=== PATIENT | female | born 1945 | race Caucasian/White ===

== ENCOUNTER → 2017-07-02 | Day surgery (SDC) | payer MEDICARE, OTHER ==
[~2017-07-02] MED LIST: Lactated Ringers 1,000 ML IV SCH; Propofol 200 MG/20 ML SDV IV ONE
[2017-07-02 11:00] VITALS: BP 179/89
--- NOTE | 2017-07-02 11:27 | OR ---
DATE OF OPERATION: 07/02/2017 PREOPERATIVE DIAGNOSIS: DYSPHAGIA, HISTORY OF JAMA'S. POSTOPERATIVE DIAGNOSIS: DYSPHAGIA, HISTORY OF JAMA'S. SURGEON: Eliot Brower MD PROCEDURE: ESOPHAGOGASTRODUODENOSCOPY WITH BIOPSIES X4, DAYL. 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 COMPLICATIONS: None. SPECIMEN: 1. Antral biopsy x2. 2. DALY. 3. Distal esophageal biopsy x2. FINDINGS: 1. Full-length EGD. 2. Indolent chronic-appearing distal gastritis. 3. Short segment Jama's with focal active reflux esophagitis. RECOMMENDATIONS: Medical followup with Levi Lawrence. INDICATIONS: Ms. Bills has been having some increase in lower chest pain with swallowing at times. She does have a documented history of reflux and Jama's changes. Levi send her for EGD. DESCRIPTION OF PROCEDURE: The patient was prepped and draped, placed in the left lateral decubitus position. A lubricated Olympus gastroscope was inserted and easily intubated in the esophagus. Esophageal lining was benign for most of its course. At its most distal portion, the patient has 1 short segment area of Jama's less than 1 cm in length. There was also a 2nd area that look like more of an active reflux esophagitis. We did biopsies of both areas. There was no active ulceration. No signs of a hiatal hernia. There were no stricturing or Schatzki's rings noted. The scope was intubated into the stomach through the pylorus into the second portion of the duodenum. This in the duodenal bulb were completely benign. The scope was brought back into the stomach and retroflexed. The upper fundus and cardia were unremarkable. Upon straightening and thorough evaluation, the entire gastric lining showed no other polyps, mass, ulceration or bleeding sites. The patient does have some, what appears to be, chronic gastritis without much inflammation of the distal portion of the antrum extending to the pylorus. We did do 2 biopsies of that. CLOtest was obtained as well. Air was then suctioned and the scope was removed without complication. NELSY/COURTNEY /[id number]
== END ==
LOC: CC.SDS 08:37
PROVIDERS: ATTEND Family Medicine
DX: K29.50 Unspecified chronic gastritis without bleeding (principal); K22.70 Barrett's esophagus without dysplasia; K20.9 Esophagitis, unspecified; F32.9 Major depressive disorder, single episode, unspecified; F41.9 Anxiety disorder, unspecified; I10 Essential (primary) hypertension; E78.00 Pure hypercholesterolemia, unspecified; B33.20 Viral carditis, unspecified; Z88.1 Allergy status to other antibiotic agents; Z88.2 Allergy status to sulfonamides; Z88.8 Allergy status to other drugs, medicaments and biological substances; Z79.82 Long term (current) use of aspirin; Z79.899 Other long term (current) drug therapy; Z79.01 Long term (current) use of anticoagulants; Z96.649 Presence of unspecified artificial hip joint; Z96.659 Presence of unspecified artificial knee joint; Z90.710 Acquired absence of both cervix and uterus; Z98.890 Other specified postprocedural states; Z87.891 Personal history of nicotine dependence
CPT/HCPCS: 36415; 43239; 85610; 87081; J2704; J7120; 00740; 88305

== ENCOUNTER 2017-11-10 11:28 | Inpatient (IN) | payer MEDICARE, OTHER ==
[2017-11-10] MEDS ORDERED: Acetaminophen 325 MG Tab PO PRN (11:36)
[2017-11-10] MEDS ORDERED: Sodium Chloride 0.9% 10 ML Syringe FLUSH PRN (11:36)
[2017-11-10] MEDS ORDERED: Ondansetron 4 MG Tab.DIS PO PRN (11:36)
[2017-11-10] MEDS ORDERED: Temazepam 15 MG Cap PO PRN (11:36)
[2017-11-10] MEDS ORDERED: fentaNYL 100 MCG/2 ML SDV IVPUSH PRN (11:36)
[2017-11-10] MEDS ORDERED: Enoxaparin 40 MG/0.4 ML Syringe SUBCUT SCH (11:45)
[2017-11-10 12:31] LABS: CHLORIDE,CL 99 mEq/L (98-106); SODIUM,NA 135 mEq/L (136-145)
[2017-11-10] MEDS ORDERED: Loratadine 10 MG Tab PO PRN (13:18)
[2017-11-10] MEDS ORDERED: ALPRAZolam 0.25 MG Tab PO PRN (13:18)
[2017-11-10] MEDS ORDERED: Phytonadione 1 MG in Sodium Chloride 0.9% 50 ML IV ONE (13:30)
[2017-11-10] MEDS ORDERED: Cyclobenzaprine 10 MG Tab PO PRN (13:30)
[2017-11-10] MEDS: fentaNYL 100 MCG/2 ML SDV IVPUSH SCH ×2 (13:53→19:47)
[2017-11-10] MEDS ORDERED: Calcium Carbonate/Vitamin D3 1250 MG-200 Unit Tab PO SCH (14:00)
[2017-11-10] MEDS: Polyethylene Glycol 3350 Powder 17 GM Packet PO SCH (17:10)
[2017-11-10] MEDS: Acetaminophen/oxyCODONE 325-5 MG Tab PO PRN (17:10)
[2017-11-10] MEDS: Calcium Carbonate/Vitamin D3 1250 MG-200 Unit Tab PO SCH (17:43)
[2017-11-10] MEDS: Cholecalciferol (Vitamin D3) 1,000 Unit Tab PO SCH (19:49)
[2017-11-11] MEDS: Acetaminophen/oxyCODONE 325-5 MG Tab PO PRN ×2 (05:45→15:12)
[2017-11-11] MEDS: Aspirin 81 MG Tab.Chew PO SCH (07:58)
[2017-11-11] MEDS: Calcium Carbonate/Vitamin D3 1250 MG-200 Unit Tab PO SCH ×2 (07:59→17:22)
[2017-11-11] MEDS: buPROPion 150 MG Tab.ER PO SCH (08:00)
[2017-11-11] MEDS: Cholecalciferol (Vitamin D3) 1,000 Unit Tab PO SCH ×2 (08:00→19:40)
[2017-11-11] MEDS: Losartan 100 MG Tab PO SCH (08:01)
[2017-11-11] MEDS: PARoxetine 20 MG Tab PO SCH (08:01)
[2017-11-11] MEDS: amLODIPine 2.5 MG Tab PO SCH (08:01)
[2017-11-11] MEDS: Pantoprazole 40 MG Tab.CR PO SCH (08:01)
[2017-11-11] MEDS: Polyethylene Glycol 3350 Powder 17 GM Packet PO SCH (08:02)
[2017-11-11] MEDS: fentaNYL 100 MCG/2 ML SDV IVPUSH SCH ×2 (08:02→19:37)
[2017-11-11] MEDS ORDERED: Polyethylene Glycol 3350 Powder 17 GM Packet PO PRN (08:54)
[2017-11-11] MEDS ORDERED: Warfarin 5 MG Tab PO ONE (09:00)
--- NOTE | 2017-11-11 11:41 | PCM.PN ---
- General Info Date of Service: 11/11/17 Admission Dx/Problem (Free Text): Sacral Fracture Functional Status: Reports: Pain Controlled (states is pain is better controlled today), Tolerating Diet. Denies: Ambulating - Review of Systems General: Reports: Weakness. Denies: Fever, Fatigue, Malaise HEENT: Reports: No Symptoms Pulmonary: Denies: Shortness of Breath, Cough, Sputum Cardiovascular: Denies: Chest Pain, Edema, Lightheadedness Gastrointestinal: Denies: Abdominal Pain, Nausea, Vomiting Genitourinary: Reports: No Symptoms Musculoskeletal: Reports: Back Pain, Leg Pain Skin: Reports: No Symptoms Neurological: Reports: Difficulty Walking. Denies: Confusion, Dizziness - Patient Data Vitals - Most Recent: Last Vital Signs Temp 96.7 F 11/11/17 08:00 Pulse 79 11/11/17 08:00 Resp 16 11/11/17 08:00 BP 143/60 H 11/11/17 08:01 Pulse Ox 96 11/11/17 08:00 Weight - Most Recent: 178 lb 8 oz Lab Results Last 24 Hours: Laboratory Results - last 24 hr 11/10/17 11/10/17 11/10/17 Range/Units 11:36 12:16 12:25 WBC 6.2 (5.0-10.0) 10^3/uL RBC 4.06 (4.00-5.50) 10^6/uL Hgb 13.2 (12.0-16.0) g/dL Hct 39.7 (37.0-47.0) % MCV 97.8 H (82.0-94.0) fL MCH 32.5 H (27.0-32.0) pg MCHC 33.2 (33.0-38.0) g/dL RDW Coeff of Angie 12.9 (11.0-15.0) % Plt Count 473 H (150-400) 10^3/uL Neut % (Auto) 65.3 (35-85) % Lymph % (Auto) 18.2 (10-55) % [place] % (Auto) 13.6 (0-16) % Eos % (Auto) 2.3 (0-5) % Baso % (Auto) 0.6 (0-3) % Neut # (Auto) 4.03 (1.80-7.00) 10^3/uL Lymph # (Auto) 1.12 (1.00-4.80) 10^3/uL [place] # (Auto) 0.84 H (0.00-0.80) 10^3/uL Eos # (Auto) 0.14 (0.00-0.45) 10^3/uL Baso # (Auto) 0.04 10^3/uL PT 73.2 H (9.7-12.3) SEC INR 6.40 H* (0.92-1.18) Sodium 135 L (136-145) mEq/L Potassium 4.4 (3.5-5.0) mEq/L Chloride 99 (98-106) mEq/L Carbon Dioxide 27 (21-32) mmol/L BUN 17 D (7-18) mg/dL Creatinine 0.9 (0.6-1.0) mg/dL Est Cr Clr Drug Dosing 54.14 mL/min Estimated GFR (MDRD) > 60 (>=60) mL/min Glucose 94 (75-99) mg/dL Calcium 9.1 (8.4-10.1) mg/dL C-Reactive Protein 3.1 H (0.2-0.8) mg/dL 11/11/17 Range/Units 05:11 WBC (5.0-10.0) 10^3/uL RBC (4.00-5.50) 10^6/uL Hgb (12.0-16.0) g/dL Hct (37.0-47.0) % MCV (82.0-94.0) fL MCH (27.0-32.0) pg MCHC (33.0-38.0) g/dL RDW Coeff of Angie (11.0-15.0) % Plt Count (150-400) 10^3/uL Neut % (Auto) (35-85) % Lymph % (Auto) (10-55) % [place] % (Auto) (0-16) % Eos % (Auto) (0-5) % Baso % (Auto) (0-3) % Neut # (Auto) (1.80-7.00) 10^3/uL Lymph # (Auto) (1.00-4.80) 10^3/uL [place] # (Auto) (0.00-0.80) 10^3/uL Eos # (Auto) (0.00-0.45) 10^3/uL Baso # (Auto) 10^3/uL PT 15.7 H (9.7-12.3) SEC INR 1.44 H (0.92-1.18) Sodium (136-145) mEq/L Potassium (3.5-5.0) mEq/L Chloride (98-106) mEq/L Carbon Dioxide (21-32) mmol/L BUN (7-18) mg/dL Creatinine (0.6-1.0) mg/dL Est Cr Clr Drug Dosing mL/min Estimated GFR (MDRD) (>=60) mL/min Glucose (75-99) mg/dL Calcium (8.4-10.1) mg/dL C-Reactive Protein (0.2-0.8) mg/dL Med Orders - Current: Current Medications Acetaminophen (Tylenol) 650 mg PO Q4H PRN PRN Reason: Pain (Mild 1-3)/fever Alprazolam (Xanax) 0.25 mg PO Q6H PRN PRN Reason: Anxiety Amlodipine Besylate (Norvasc) 2.5 mg PO DAILY [facility] Last Admin: 11/11/17 08:01 Dose: 2.5 mg Aspirin (Aspirin) 81 mg PO DAILY [facility] Last Admin: 11/11/17 07:58 Dose: 81 mg Bupropion HCl (Wellbutrin Xl) 150 mg PO DAILY [facility] Last Admin: 11/11/17 08:00 Dose: 150 mg Calcium Carbonate (Calcium Carbonate/Vitamin D 1250 Mg-200 Unit) 2 tab PO 1730 [facility] Last Admin: 11/10/17 17:43 Dose: 2 tab Calcium Carbonate (Calcium Carbonate/Vitamin D 1250 Mg-200 Unit) 1 tab PO DAILY [facility] Last Admin: 11/11/17 07:59 Dose: 1 tab Cholecalciferol (Vitamin D3) 1,000 units PO BID [facility] Last Admin: 11/11/17 08:00 Dose: 1,000 units Cyclobenzaprine HCl (Flexeril) 10 mg PO BID PRN PRN Reason: Other Fentanyl (Sublimaze) 25 mcg IVPUSH BID [facility] Last Admin: 11/11/17 08:02 Dose: 25 mcg Fentanyl (Sublimaze) 25 mcg IVPUSH Q6H PRN PRN Reason: Pain Last Admin: 11/11/17 02:21 Dose: 25 mcg Loratadine (Claritin) 10 mg PO DAILY PRN PRN Reason: Allergies Losartan Potassium (Cozaar) 100 mg PO DAILY [facility] Last Admin: 11/11/17 08:01 Dose: 100 mg Metoprolol Succinate (Toprol Xl) 50 mg PO BEDTIME [facility] Ondansetron HCl (Zofran Odt) 4 mg PO Q4H PRN PRN Reason: nausea, able to take PO Oxycodone/Acetaminophen (Percocet 325-5 Mg) 1 - 2 tab PO Q4H PRN PRN Reason: Pain (moderate 4-6) Last Admin: 11/11/17 05:45 Dose: 2 tab Pantoprazole Sodium (Protonix) 40 mg PO DAILY [facility] Last Admin: 11/11/17 08:01 Dose: 40 mg Paroxetine HCl (Paxil) 20 mg PO DAILY [facility] Last Admin: 11/11/17 08:01 Dose: 20 mg Polyethylene Glycol (Miralax) 17 gm PO DAILY PRN PRN Reason: Constipation Sodium Chloride (Saline Flush) 10 ml FLUSH ASDIRECTED PRN PRN Reason: Keep Vein Open Temazepam (Restoril) 15 mg PO BEDTIME PRN PRN Reason: Sleep Discontinued Medications Calcium Carbonate (Calcium Carbonate/Vitamin D 1250 Mg-200 Unit) 1 tab PO TID [facility] Last Admin: 11/10/17 15:03 Dose: Not Given Enoxaparin Sodium (Lovenox) 40 mg SUBCUT Q24H [facility] Last Admin: 11/10/17 12:29 Dose: Not Given Phytonadione 1 mg/ Sodium (Chloride) 50.1 mls @ 100 mls/hr IV NOW ONE Stop: 11/10/17 14:00 Last Admin: 11/10/17 14:06 Dose: 100 mls/hr Polyethylene Glycol (Miralax) 17 gm PO DAILY [facility] Last Admin: 11/11/17 08:02 Dose: Not Given Warfarin Sodium (Coumadin) 5 mg PO ONETIME ONE Stop: 11/11/17 09:01 Last Admin: 11/11/17 09:10 Dose: 5 mg - Exam General: Alert, Oriented HEENT: Mucous Membr. Moist/[place] Neck: Supple Lungs: Clear to Auscultation, Normal Respiratory Effort Cardiovascular: Regular Rate, Regular Rhythm GI/Abdominal Exam: Normal Bowel Sounds, Soft, Non-Tender Back Exam: Normal Inspection, Vertebral Tenderness (sacral tenderness, SI joint tenderness with palpation.) Extremities: Redness, Other (faint pedal pulse today, still has purpura to right lateral foot, warmer to the touch) Skin: Warm, Dry Neurological: No New Focal Deficit - Problem List & Annotations (1) Sacral fracture, closed SNOMED Code(s): 787104760 Code(s): S32.10XA - UNSP FRACTURE OF SACRUM, INIT ENCNTR FOR CLOSED FRACTURE Status: Acute Priority: High Current Visit: Yes Qualifiers: Encounter type: initial encounter Fracture alignment: nondisplaced - Problem List Review Problem List Initiated/Reviewed/Updated: Yes - My Orders Last 24 Hours: My Active Orders 11/10/17 11:36 Patient Status [ADT] Routine Oxygen Therapy [RC] .PRN Up With Assistance [RC] .PRN Vital Signs [RC] 0800,1200,1600,2000,0000 PT Evaluation and Treatment [CONS] Routine Hip Min 2V or 3V w Pelvis Rt [CR] Routine Lumbar Spine wo Cont [CT] Routine Acetaminophen [Tylenol] 650 mg PO Q4H PRN Acetaminophen/oxyCODONE [Percocet 325-5 MG] 1 - 2 tab PO Q4H PRN Ondansetron [Zofran ODT] 4 mg PO Q4H PRN Sodium Chloride 0.9% [Saline Flush] 10 ml FLUSH ASDIRECTED PRN Temazepam [Restoril] 15 mg PO BEDTIME PRN fentaNYL [Sublimaze] 25 mcg IVPUSH Q6H PRN Saline Lock Insert [OM.PC] Routine 11/10/17 11:39 Antiembolic Hose [OM.PC] Per Unit Routine 11/10/17 11:40 Antiembolic Devices [RC] 1000,2200 11/10/17 12:30 fentaNYL [Sublimaze] 25 mcg IVPUSH BID 11/10/17 13:18 ALPRAZolam [Xanax] 0.25 mg PO Q6H PRN Loratadine [Claritin] 10 mg PO DAILY PRN 11/10/17 13:30 Cyclobenzaprine [Flexeril] 10 mg PO BID PRN 11/10/17 17:01 K Pad [Heat Therapy] [OM.PC] Routine 11/10/17 17:30 Calcium Carbonate/Vitamin D3 [Calcium Carbonate/Vitamin D 1250 MG-200 Unit] 2 tab PO 1730 11/10/17 20:00 Cholecalciferol (Vitamin D3) [Vitamin D3] 1,000 units PO BID 11/10/17 Lunch Regular Diet [DIET] 11/11/17 08:00 Aspirin 81 mg PO DAILY Calcium Carbonate/Vitamin D3 [Calcium Carbonate/Vitamin D 1250 MG-200 Unit] 1 tab PO DAILY Losartan [Cozaar] 100 mg PO DAILY PARoxetine [Paxil] 20 mg PO DAILY Pantoprazole [ProTONIX] 40 mg PO DAILY amLODIPine [Norvasc] 2.5 mg PO DAILY buPROPion [Wellbutrin XL] 150 mg PO DAILY 11/11/17 08:54 Polyethylene Glycol 3350 [MiraLAX] 17 gm PO DAILY PRN 11/11/17 20:00 Metoprolol Succinate [Toprol XL] 50 mg PO BEDTIME 11/12/17 05:11 INR,PT,PROTHROMBIN TIME [COAG] DAILY 11/13/17 05:11 INR,PT,PROTHROMBIN TIME [COAG] DAILY - Assessment Assessment:: Sacral Fracture - Plan Plan:: Patient states is getting better pain control this am, is taking Percocet in addition to her Fentanyl. Ambulating short distances with walker and tolerating fairly well. Has more pain with rising up, ambulating and sitting. Is very tender to the coccyx region and right buttock. Feels the radiation to the mid thigh. Right foot is warmer to the touch today, faint pulse palpable. Does have a purpura/valery appearance to the right lateral foot. Has not had any injuries. Had good bowel movement after dose of Miralax yesterday. Will continue with IV pain management, Physical therapy as directed. Miralax to PRN only. Inappropriate for discharge as is getting pain control with IV meds versus failed oral treatment at home.
[2017-11-11] MEDS: Metoprolol Succinate 25 MG Tab.ER PO SCH (19:39)
[2017-11-12] MEDS: Acetaminophen/oxyCODONE 325-5 MG Tab PO PRN ×2 (04:51→14:42)
[2017-11-12] MEDS: fentaNYL 100 MCG/2 ML SDV IVPUSH SCH ×2 (07:25→19:56)
[2017-11-12] MEDS: Calcium Carbonate/Vitamin D3 1250 MG-200 Unit Tab PO SCH ×2 (07:31→17:15)
[2017-11-12] MEDS: Aspirin 81 MG Tab.Chew PO SCH (07:31)
[2017-11-12] MEDS: Cholecalciferol (Vitamin D3) 1,000 Unit Tab PO SCH ×2 (07:31→19:57)
[2017-11-12] MEDS: PARoxetine 20 MG Tab PO SCH (07:32)
[2017-11-12] MEDS: Losartan 100 MG Tab PO SCH (07:32)
[2017-11-12] MEDS: buPROPion 150 MG Tab.ER PO SCH (07:32)
[2017-11-12] MEDS: Pantoprazole 40 MG Tab.CR PO SCH (07:32)
[2017-11-12] MEDS: amLODIPine 2.5 MG Tab PO SCH (07:33)
[2017-11-12] MEDS: Warfarin 5 MG Tab PO SCH (12:01)
--- NOTE | 2017-11-12 13:04 | PCM.PN ---
- General Info Date of Service: 11/12/17 Admission Dx/Problem (Free Text): Sacral Fracture Functional Status: Reports: Pain Controlled (pain controlled while at rest and is better with pain meds), Tolerating Diet, Ambulating (short distances) - Review of Systems General: Reports: Weakness HEENT: Reports: No Symptoms Pulmonary: Reports: No Symptoms Cardiovascular: Reports: No Symptoms Gastrointestinal: Reports: No Symptoms Genitourinary: Reports: No Symptoms Musculoskeletal: Reports: Back Pain, Leg Pain Skin: Reports: No Symptoms Neurological: Reports: No Symptoms - Patient Data Vitals - Most Recent: Last Vital Signs Temp 97.5 F 11/12/17 11:50 Pulse 72 11/12/17 11:50 Resp 20 11/12/17 11:50 BP 137/61 11/12/17 11:50 Pulse Ox 99 11/12/17 11:50 Weight - Most Recent: 178 lb 8 oz Lab Results Last 24 Hours: Laboratory Results - last 24 hr 11/12/17 Range/Units 05:11 PT 13.9 H (9.7-12.3) SEC INR 1.28 H (0.92-1.18) Med Orders - Current: Current Medications Acetaminophen (Tylenol) 650 mg PO Q4H PRN PRN Reason: Pain (Mild 1-3)/fever Alprazolam (Xanax) 0.25 mg PO Q6H PRN PRN Reason: Anxiety Amlodipine Besylate (Norvasc) 2.5 mg PO DAILY [facility] Last Admin: 11/12/17 07:33 Dose: 2.5 mg Aspirin (Aspirin) 81 mg PO DAILY [facility] Last Admin: 11/12/17 07:31 Dose: 81 mg Bupropion HCl (Wellbutrin Xl) 150 mg PO DAILY [facility] Last Admin: 11/12/17 07:32 Dose: 150 mg Calcium Carbonate (Calcium Carbonate/Vitamin D 1250 Mg-200 Unit) 2 tab PO 1730 [facility] Last Admin: 11/11/17 17:22 Dose: 2 tab Calcium Carbonate (Calcium Carbonate/Vitamin D 1250 Mg-200 Unit) 1 tab PO DAILY [facility] Last Admin: 11/12/17 07:31 Dose: 1 tab Cholecalciferol (Vitamin D3) 1,000 units PO BID [facility] Last Admin: 11/12/17 07:31 Dose: 1,000 units Cyclobenzaprine HCl (Flexeril) 10 mg PO BID PRN PRN Reason: Other Fentanyl (Sublimaze) 25 mcg IVPUSH BID [facility] Last Admin: 11/12/17 07:25 Dose: 25 mcg Fentanyl (Sublimaze) 25 mcg IVPUSH Q6H PRN PRN Reason: Pain Last Admin: 11/11/17 02:21 Dose: 25 mcg Loratadine (Claritin) 10 mg PO DAILY PRN PRN Reason: Allergies Losartan Potassium (Cozaar) 100 mg PO DAILY [facility] Last Admin: 11/12/17 07:32 Dose: 100 mg Metoprolol Succinate (Toprol Xl) 50 mg PO BEDTIME [facility] Last Admin: 11/11/17 19:39 Dose: 50 mg Ondansetron HCl (Zofran Odt) 4 mg PO Q4H PRN PRN Reason: nausea, able to take PO Oxycodone/Acetaminophen (Percocet 325-5 Mg) 1 - 2 tab PO Q4H PRN PRN Reason: Pain (moderate 4-6) Last Admin: 11/12/17 04:51 Dose: 2 tab Pantoprazole Sodium (Protonix) 40 mg PO DAILY [facility] Last Admin: 11/12/17 07:32 Dose: 40 mg Paroxetine HCl (Paxil) 20 mg PO DAILY [facility] Last Admin: 11/12/17 07:32 Dose: 20 mg Polyethylene Glycol (Miralax) 17 gm PO DAILY PRN PRN Reason: Constipation Sodium Chloride (Saline Flush) 10 ml FLUSH ASDIRECTED PRN PRN Reason: Keep Vein Open Temazepam (Restoril) 15 mg PO BEDTIME PRN PRN Reason: Sleep Warfarin Sodium (Coumadin) 5 mg PO DAILY@1200 [facility] Last Admin: 11/12/17 12:01 Dose: 5 mg Discontinued Medications Calcium Carbonate (Calcium Carbonate/Vitamin D 1250 Mg-200 Unit) 1 tab PO TID [facility] Last Admin: 11/10/17 15:03 Dose: Not Given Enoxaparin Sodium (Lovenox) 40 mg SUBCUT Q24H [facility] Last Admin: 11/10/17 12:29 Dose: Not Given Phytonadione 1 mg/ Sodium (Chloride) 50.1 mls @ 100 mls/hr IV NOW ONE Stop: 11/10/17 14:00 Last Admin: 11/10/17 14:06 Dose: 100 mls/hr Polyethylene Glycol (Miralax) 17 gm PO DAILY [facility] Last Admin: 11/11/17 08:02 Dose: Not Given Warfarin Sodium (Coumadin) 5 mg PO ONETIME ONE Stop: 11/11/17 09:01 Last Admin: 11/11/17 09:10 Dose: 5 mg - Exam General: Alert, Oriented HEENT: Mucous Membr. Moist/[place] Neck: Supple Lungs: Clear to Auscultation, Normal Respiratory Effort Cardiovascular: Irregular Rhythm GI/Abdominal Exam: Normal Bowel Sounds, Soft, Non-Tender Back Exam: Decreased Range of Motion, Vertebral Tenderness, Other (pain to the right buttock with palpation). No: Full Range of Motion Skin: Warm, Dry Neurological: No New Focal Deficit - Problem List & Annotations (1) Sacral fracture, closed SNOMED Code(s): 591399719 Code(s): S32.10XA - UNSP FRACTURE OF SACRUM, INIT ENCNTR FOR CLOSED FRACTURE Status: Acute Priority: High Current Visit: Yes Qualifiers: Encounter type: initial encounter Fracture alignment: nondisplaced - Problem List Review Problem List Initiated/Reviewed/Updated: Yes - My Orders Last 24 Hours: My Active Orders 11/11/17 20:00 Metoprolol Succinate [Toprol XL] 50 mg PO BEDTIME 11/12/17 12:00 Warfarin [Coumadin] 5 mg PO DAILY@1200 11/15/17 05:11 INR,PT,PROTHROMBIN TIME [COAG] Routine - Assessment Assessment:: Sacral Fracture - Plan Plan:: Patient states is getting better pain control this am, is taking Percocet in addition to her Fentanyl. Ambulating short distances with walker and tolerating fairly well. Has more pain with rising up, ambulating and sitting. Is very tender to the coccyx region and right buttock. Feels the radiation to the mid thigh. Right foot is warmer to the touch today, faint pulse palpable. Does have a purpura/valery appearance to the right lateral foot. Has not had any injuries. Had good bowel movement after dose of Miralax yesterday. Will continue with IV pain management, Physical therapy as directed. Miralax to PRN only. Inappropriate for discharge as is getting pain control with IV meds versus failed oral treatment at home. 11-12-2017 Patient feels her pain is controlled better with the meds but still has discomfort with movement. Does feel she is ambulating better than had been prior. Continues to have pain in the coccyx region and right buttock that radiates down her thigh. Has a K Pad on her back now and she believes that has also helped a lot. Continue to work with PT. Pain management. Possibly transfer to swing bed tomorrow for ongoing PT and pain management until able to return home as self care.
[2017-11-12] MEDS: Metoprolol Succinate 25 MG Tab.ER PO SCH (19:57)
[2017-11-13] MEDS: Acetaminophen/oxyCODONE 325-5 MG Tab PO PRN (03:56)
[2017-11-13] MEDS: fentaNYL 100 MCG/2 ML SDV IVPUSH SCH (07:28)
[2017-11-13] MEDS: Aspirin 81 MG Tab.Chew PO SCH (07:29)
[2017-11-13] MEDS: amLODIPine 2.5 MG Tab PO SCH (07:30)
[2017-11-13] MEDS: Calcium Carbonate/Vitamin D3 1250 MG-200 Unit Tab PO SCH (07:30)
[2017-11-13] MEDS: PARoxetine 20 MG Tab PO SCH (07:30)
[2017-11-13] MEDS: Pantoprazole 40 MG Tab.CR PO SCH (07:30)
[2017-11-13] MEDS: buPROPion 150 MG Tab.ER PO SCH (07:30)
[2017-11-13] MEDS: Cholecalciferol (Vitamin D3) 1,000 Unit Tab PO SCH (07:30)
[2017-11-13] MEDS: Losartan 100 MG Tab PO SCH (07:32)
[2017-11-13] MEDS: Warfarin 5 MG Tab PO SCH (11:35)
[2017-11-13 12:02] VITALS: BP 151/68
--- NOTE | 2017-11-13 13:35 | PCM.DCSUM1 ---
Discharge Summary - Hospital Course HPI Initial Comments: Romana is a pleasat 72 year old female who was admitted to the hospital on 11/10 for a sacral ulcer. She was unable to adequately control her pain and complete her ADLs at home. She had reportedly been hurting for a while and feels she may have caused worsening of the pain when she was visiting her daughter in [place] and going up and down stairs. She had also rode in a car for an extended amount of time. The few days prior to admission, the pain had become much worse and she was having trouble making it to the bathroom in time. Throughout acute stay, patients pain control was improving. She was requiring IV fentanyl for breakthrough pain, in addition to Percocet. She has been ambulating short distances with nursing staff and physical therapy. She reports the pain worsens with sitting for too long, standing, and ambulating. At rest her pain is well controlled. She remains tender to touch in her coccyx area. She also continues to have pain from the coccyx region and right buttock that radiates down her right leg. She will be discharged to swing bed for continued physical therapy and pain management. She is continuing to require the IV fentanyl for breakthrough pain. I do not feel she is ready to go home at this point, as she lives alone and remains unable to care for herself. - Discharge Data Discharge Date: 11/13/17 Discharge Disposition: Home, Self-Care 01 Condition: Good - Discharge Diagnosis/Problem(s) (1) Sacral fracture, closed SNOMED Code(s): 602185137 ICD Code: S32.10XA - UNSP FRACTURE OF SACRUM, INIT ENCNTR FOR CLOSED FRACTURE Status: Acute Priority: High Qualifiers: Encounter type: initial encounter Fracture alignment: nondisplaced - Patient Summary/Data Consults: Consultations 11/10/17 11:36 PT Evaluation and Treatment [CONS] Routine - Discharge Plan Home Medications: Home Meds Ascorbic Acid [Vitamin C] 1 tab PO DAILY PRN 08/02/15 [History] Aspirin 81 mg PO DAILY 08/02/15 [History] Calcium Citrate/Vitamin D3 [Calcium Citrate + Caplet] 1,000 mg PO QAM 08/02/15 [ History] Cetirizine [ZyrTEC] 10 mg PO DAILY PRN 08/02/15 [History] Lysine 2 tab PO DAILY PRN 08/02/15 [History] Metoprolol Succinate [Toprol XL] 50 mg PO DAILY 08/02/15 [History] PARoxetine [Paxil] 20 mg PO DAILY 08/02/15 [History] Warfarin [Coumadin] 5 mg PO MOTUWETHFRSA 08/02/15 [History] Losartan Potassium 100 mg PO DAILY 03/04/16 [History] Zoledronic Acid in Water [Reclast] 5 mg IV Q365D 03/04/16 [History] amLODIPine Besylate [Norvasc] 2.5 mg PO DAILY 03/04/16 [History] ALPRAZolam [Xanax] 0.25 mg PO Q6H PRN 07/01/17 [History] Cholecalciferol (Vitamin D3) [Vitamin D3] 1,000 units PO BID 07/01/17 [History] Cyclobenzaprine HCl 10 mg PO BID PRN 07/01/17 [History] Pantoprazole Sodium 40 mg PO DAILY 07/01/17 [History] buPROPion HCl [Wellbutrin Xl] 150 mg PO DAILY 07/01/17 [History] Calcium Citrate/Vitamin D3 [Calcium Citrate - Vit D Tablet] 2,000 mg PO 1730 [History] Warfarin [Coumadin] 2.5 mg PO TONY 11/10/17 [History] oxyCODONE HCl/Acetaminophen [oxyCODONE-Acetaminophen 5-325] 1 - 2 tab PO Q4HR PRN 11/10/17 [History] - General Info Functional Status: Reports: Pain Controlled (at rest, worsens with activity), Tolerating Diet, Ambulating (short distances with assistance & FWW), Urinating. Denies: New Symptoms - Review of Systems General: Reports: Weakness Pulmonary: Reports: No Symptoms Cardiovascular: Reports: No Symptoms Gastrointestinal: Reports: No Symptoms Genitourinary: Reports: No Symptoms Musculoskeletal: Reports: Back Pain, Leg Pain Skin: Reports: No Symptoms Neurological: Reports: No Symptoms Psychiatric: Reports: No Symptoms - Patient Data Vitals - Most Recent: Last Vital Signs Temp 97.9 F 11/13/17 12:00 Pulse 68 11/13/17 12:00 Resp 19 11/13/17 12:00 BP 151/68 H 11/13/17 12:00 Pulse Ox 100 11/13/17 12:00 Weight - Most Recent: 178 lb 8 oz Med Orders - Current: Current Medications Acetaminophen (Tylenol) 650 mg PO Q4H PRN PRN Reason: Pain (Mild 1-3)/fever Alprazolam (Xanax) 0.25 mg PO Q6H PRN PRN Reason: Anxiety Amlodipine Besylate (Norvasc) 2.5 mg PO DAILY [facility] Last Admin: 11/13/17 07:30 Dose: 2.5 mg Aspirin (Aspirin) 81 mg PO DAILY [facility] Last Admin: 11/13/17 07:29 Dose: 81 mg Bupropion HCl (Wellbutrin Xl) 150 mg PO DAILY [facility] Last Admin: 11/13/17 07:30 Dose: 150 mg Calcium Carbonate (Calcium Carbonate/Vitamin D 1250 Mg-200 Unit) 2 tab PO 1730 [facility] Last Admin: 11/12/17 17:15 Dose: 2 tab Calcium Carbonate (Calcium Carbonate/Vitamin D 1250 Mg-200 Unit) 1 tab PO DAILY [facility] Last Admin: 11/13/17 07:30 Dose: 1 tab Cholecalciferol (Vitamin D3) 1,000 units PO BID [facility] Last Admin: 11/13/17 07:30 Dose: 1,000 units Cyclobenzaprine HCl (Flexeril) 10 mg PO BID PRN PRN Reason: Other Fentanyl (Sublimaze) 25 mcg IVPUSH BID [facility] Last Admin: 11/13/17 07:28 Dose: 25 mcg Fentanyl (Sublimaze) 25 mcg IVPUSH Q6H PRN PRN Reason: Pain Last Admin: 11/11/17 02:21 Dose: 25 mcg Loratadine (Claritin) 10 mg PO DAILY PRN PRN Reason: Allergies Losartan Potassium (Cozaar) 100 mg PO DAILY [facility] Last Admin: 11/13/17 07:32 Dose: 100 mg Metoprolol Succinate (Toprol Xl) 50 mg PO BEDTIME [facility] Last Admin: 11/12/17 19:57 Dose: 50 mg Ondansetron HCl (Zofran Odt) 4 mg PO Q4H PRN PRN Reason: nausea, able to take PO Oxycodone/Acetaminophen (Percocet 325-5 Mg) 1 - 2 tab PO Q4H PRN PRN Reason: Pain (moderate 4-6) Last Admin: 11/13/17 03:56 Dose: 2 tab Pantoprazole Sodium (Protonix) 40 mg PO DAILY [facility] Last Admin: 11/13/17 07:30 Dose: 40 mg Paroxetine HCl (Paxil) 20 mg PO DAILY [facility] Last Admin: 11/13/17 07:30 Dose: 20 mg Polyethylene Glycol (Miralax) 17 gm PO DAILY PRN PRN Reason: Constipation Sodium Chloride (Saline Flush) 10 ml FLUSH ASDIRECTED PRN PRN Reason: Keep Vein Open Temazepam (Restoril) 15 mg PO BEDTIME PRN PRN Reason: Sleep Warfarin Sodium (Coumadin) 5 mg PO DAILY@1200 [facility] Last Admin: 11/13/17 11:35 Dose: 5 mg Discontinued Medications Calcium Carbonate (Calcium Carbonate/Vitamin D 1250 Mg-200 Unit) 1 tab PO TID [facility] Last Admin: 11/10/17 15:03 Dose: Not Given Enoxaparin Sodium (Lovenox) 40 mg SUBCUT Q24H [facility] Last Admin: 11/10/17 12:29 Dose: Not Given Phytonadione 1 mg/ Sodium (Chloride) 50.1 mls @ 100 mls/hr IV NOW ONE Stop: 11/10/17 14:00 Last Admin: 11/10/17 14:06 Dose: 100 mls/hr Polyethylene Glycol (Miralax) 17 gm PO DAILY [facility] Last Admin: 11/11/17 08:02 Dose: Not Given Warfarin Sodium (Coumadin) 5 mg PO ONETIME ONE Stop: 11/11/17 09:01 Last Admin: 11/11/17 09:10 Dose: 5 mg - Exam General: Reports: Alert, Oriented HEENT: Reports: Mucous Membr. Moist/[place] Neck: Reports: Supple Lungs: Reports: Clear to Auscultation, Normal Respiratory Effort Cardiovascular: Reports: Regular Rate, Irregular Rhythm GI/Abdominal Exam: Normal Bowel Sounds, Soft, Non-Tender, No Organomegaly, No Distention, No Abnormal Bruit, No Mass, Pelvis Stable Back Exam: Reports: Decreased Range of Motion, Vertebral Tenderness, Other ( pain to right buttock with palpation) Skin: Reports: Warm, Dry Neurological: Reports: No New Focal Deficit Psy/Mental Status: Reports: Alert, Normal Affect, Normal Mood *Q Meaningful Use (DIS) - VTE *Q VTE Criteria *Q: - Stroke *Q Stroke Criteria *Q: - AMI *Q AMI Criteria *Q:
== END 2017-11-13 13:36 | disposition home or self-care (01) | DRG 552 ==
LOC: CC.MS 11:28 → UNDOADMIN 11:28 → CC.MS 11:36
PROVIDERS: ADMIT Physician Assistant Medical; ATTEND Family Medicine
DX: S32.10XA Unspecified fracture of sacrum, initial encounter for closed fracture (principal); Z88.8 Allergy status to other drugs, medicaments and biological substances; Z79.01 Long term (current) use of anticoagulants; Z79.82 Long term (current) use of aspirin; Z79.899 Other long term (current) drug therapy; X58.XXXA Exposure to other specified factors, initial encounter
CPT/HCPCS: 36415; 72131; 80048; 85025; 85610; 86140; 97110-GP; 97162-GP; 97530-GP; A9270-GY; J3010; J3430; J7050

== ENCOUNTER 2017-11-13 13:40 | Inpatient (IN) | payer MEDICARE, OTHER ==
[2017-11-13] MEDS ORDERED: Acetaminophen 325 MG Tab PO PRN (13:55)
[2017-11-13] MEDS ORDERED: Sodium Chloride 0.9% 10 ML Syringe FLUSH PRN ×2 (13:55)
[2017-11-13] MEDS ORDERED: Loratadine 10 MG Tab PO PRN (13:55)
[2017-11-13] MEDS ORDERED: fentaNYL 100 MCG/2 ML SDV IVPUSH PRN (13:55)
[2017-11-13] MEDS ORDERED: Temazepam 15 MG Cap PO PRN (13:55)
[2017-11-13] MEDS ORDERED: ALPRAZolam 0.25 MG Tab PO PRN (13:55)
[2017-11-13] MEDS ORDERED: Cyclobenzaprine 10 MG Tab PO PRN (13:55)
[2017-11-13] MEDS ORDERED: Ondansetron 4 MG Tab.DIS PO PRN (13:55)
[2017-11-13] MEDS ORDERED: Polyethylene Glycol 3350 Powder 17 GM Packet PO PRN (13:55)
[2017-11-13] MEDS: Acetaminophen/oxyCODONE 325-5 MG Tab PO PRN (14:38)
[2017-11-13] MEDS: Calcium Carbonate/Vitamin D3 1250 MG-200 Unit Tab PO SCH (17:42)
[2017-11-13] MEDS: fentaNYL 100 MCG/2 ML SDV IVPUSH SCH (20:01)
[2017-11-13] MEDS: Metoprolol Succinate 25 MG Tab.ER PO SCH (20:02)
[2017-11-13] MEDS: Cholecalciferol (Vitamin D3) 1,000 Unit Tab PO SCH (20:03)
[2017-11-14] MEDS: Pantoprazole 40 MG Tab.CR PO SCH (06:46)
[2017-11-14] MEDS: amLODIPine 2.5 MG Tab PO SCH (07:37)
[2017-11-14] MEDS: Calcium Carbonate/Vitamin D3 1250 MG-200 Unit Tab PO SCH ×2 (07:39→17:53)
[2017-11-14] MEDS: PARoxetine 20 MG Tab PO SCH (07:39)
[2017-11-14] MEDS: Cholecalciferol (Vitamin D3) 1,000 Unit Tab PO SCH ×2 (07:39→19:53)
[2017-11-14] MEDS: Aspirin 81 MG Tab.EC PO SCH (07:39)
[2017-11-14] MEDS: Losartan 100 MG Tab PO SCH (07:40)
[2017-11-14] MEDS: fentaNYL 100 MCG/2 ML SDV IVPUSH SCH ×2 (07:40→19:52)
[2017-11-14] MEDS: buPROPion 150 MG Tab.ER PO SCH (07:40)
[2017-11-14] MEDS: Warfarin 5 MG Tab PO SCH (12:02)
[2017-11-14] MEDS: Metoprolol Succinate 25 MG Tab.ER PO SCH (19:53)
[2017-11-14] MEDS: Acetaminophen/oxyCODONE 325-5 MG Tab PO PRN (22:17)
[2017-11-15] MEDS: Pantoprazole 40 MG Tab.CR PO SCH (07:26)
[2017-11-15] MEDS: Losartan 100 MG Tab PO SCH (07:26)
[2017-11-15] MEDS: Calcium Carbonate/Vitamin D3 1250 MG-200 Unit Tab PO SCH ×2 (07:26→17:19)
[2017-11-15] MEDS: PARoxetine 20 MG Tab PO SCH (07:26)
[2017-11-15] MEDS: buPROPion 150 MG Tab.ER PO SCH (07:26)
[2017-11-15] MEDS: Cholecalciferol (Vitamin D3) 1,000 Unit Tab PO SCH ×2 (07:26→19:41)
[2017-11-15] MEDS: Aspirin 81 MG Tab.EC PO SCH (07:27)
[2017-11-15] MEDS: amLODIPine 2.5 MG Tab PO SCH (07:27)
[2017-11-15] MEDS: fentaNYL 100 MCG/2 ML SDV IVPUSH SCH ×2 (07:27→19:40)
[2017-11-15] MEDS: Warfarin 5 MG Tab PO SCH (12:06)
[2017-11-15] MEDS ORDERED: Acetaminophen 325 MG Tab PO PRN (15:54)
[2017-11-15] MEDS: Metoprolol Succinate 25 MG Tab.ER PO SCH (19:41)
[2017-11-16] MEDS: Acetaminophen 500 MG Tab PO PRN (01:45)
[2017-11-16] MEDS: Pantoprazole 40 MG Tab.CR PO SCH (06:41)
[2017-11-16] MEDS: fentaNYL 100 MCG/2 ML SDV IVPUSH SCH ×2 (08:31→20:02)
[2017-11-16] MEDS: Aspirin 81 MG Tab.EC PO SCH (08:32)
[2017-11-16] MEDS: buPROPion 150 MG Tab.ER PO SCH (08:32)
[2017-11-16] MEDS: PARoxetine 20 MG Tab PO SCH (08:32)
[2017-11-16] MEDS: Cholecalciferol (Vitamin D3) 1,000 Unit Tab PO SCH ×2 (08:33→20:10)
[2017-11-16] MEDS: amLODIPine 2.5 MG Tab PO SCH (08:33)
[2017-11-16] MEDS: Losartan 100 MG Tab PO SCH (08:33)
[2017-11-16] MEDS: Calcium Carbonate/Vitamin D3 1250 MG-200 Unit Tab PO SCH ×2 (08:37→17:32)
[2017-11-16] MEDS: Acetaminophen/oxyCODONE 325-5 MG Tab PO PRN (12:20)
[2017-11-16] MEDS: Warfarin 5 MG Tab PO SCH (12:20)
[2017-11-16] MEDS: Metoprolol Succinate 25 MG Tab.ER PO SCH (20:10)
[2017-11-17] MEDS: Acetaminophen/oxyCODONE 325-5 MG Tab PO PRN (00:26)
[2017-11-17] MEDS: fentaNYL 100 MCG/2 ML SDV IVPUSH SCH ×2 (08:21→19:35)
[2017-11-17] MEDS: Losartan 100 MG Tab PO SCH (08:23)
[2017-11-17] MEDS: Pantoprazole 40 MG Tab.CR PO SCH (08:23)
[2017-11-17] MEDS: Calcium Carbonate/Vitamin D3 1250 MG-200 Unit Tab PO SCH ×2 (08:23→18:50)
[2017-11-17] MEDS: Cholecalciferol (Vitamin D3) 1,000 Unit Tab PO SCH ×2 (08:24→19:36)
[2017-11-17] MEDS: Aspirin 81 MG Tab.EC PO SCH (08:24)
[2017-11-17] MEDS: buPROPion 150 MG Tab.ER PO SCH (08:24)
[2017-11-17] MEDS: PARoxetine 20 MG Tab PO SCH (08:24)
[2017-11-17] MEDS: amLODIPine 2.5 MG Tab PO SCH (08:24)
[2017-11-17] MEDS: Acetaminophen 500 MG Tab PO PRN (13:13)
[2017-11-17] MEDS: Warfarin 5 MG Tab PO SCH (13:13)
[2017-11-17] MEDS: Metoprolol Succinate 25 MG Tab.ER PO SCH (19:36)
[2017-11-18] MEDS: Pantoprazole 40 MG Tab.CR PO SCH (06:04)
[2017-11-18] MEDS: Acetaminophen 500 MG Tab PO PRN ×2 (06:04→14:22)
[2017-11-18] MEDS: Calcium Carbonate/Vitamin D3 1250 MG-200 Unit Tab PO SCH ×2 (07:57→17:38)
[2017-11-18] MEDS: amLODIPine 2.5 MG Tab PO SCH (07:58)
[2017-11-18] MEDS: Losartan 100 MG Tab PO SCH (07:58)
[2017-11-18] MEDS: buPROPion 150 MG Tab.ER PO SCH (07:58)
[2017-11-18] MEDS: Cholecalciferol (Vitamin D3) 1,000 Unit Tab PO SCH ×2 (07:58→20:19)
[2017-11-18] MEDS: PARoxetine 20 MG Tab PO SCH (07:58)
[2017-11-18] MEDS: Aspirin 81 MG Tab.EC PO SCH (07:58)
[2017-11-18] MEDS: fentaNYL 100 MCG/2 ML SDV IVPUSH SCH ×2 (08:11→20:19)
[2017-11-18] MEDS: Warfarin 5 MG Tab PO SCH (11:56)
[2017-11-18] MEDS: Metoprolol Succinate 25 MG Tab.ER PO SCH (20:18)
[2017-11-19] MEDS: Acetaminophen 500 MG Tab PO PRN ×2 (00:57→12:41)
[2017-11-19] MEDS: Pantoprazole 40 MG Tab.CR PO SCH (06:30)
[2017-11-19 07:33] VITALS: BP 152/73
[2017-11-19] MEDS: buPROPion 150 MG Tab.ER PO SCH (08:16)
[2017-11-19] MEDS: Cholecalciferol (Vitamin D3) 1,000 Unit Tab PO SCH (08:16)
[2017-11-19] MEDS: PARoxetine 20 MG Tab PO SCH (08:16)
[2017-11-19] MEDS: Aspirin 81 MG Tab.EC PO SCH (08:17)
[2017-11-19] MEDS: amLODIPine 2.5 MG Tab PO SCH (08:17)
[2017-11-19] MEDS: Losartan 100 MG Tab PO SCH (08:17)
[2017-11-19] MEDS: Calcium Carbonate/Vitamin D3 1250 MG-200 Unit Tab PO SCH (08:17)
[2017-11-19] MEDS: fentaNYL 100 MCG/2 ML SDV IVPUSH SCH (08:18)
[2017-11-19] MEDS: Warfarin 5 MG Tab PO SCH (12:41)
[2017-11-19] MEDS ORDERED: Acetaminophen/oxyCODONE 325-5 MG Tab PO PRN (14:01)
--- NOTE | 2017-11-21 20:29 | PCM.DCSUM1 ---
Discharge Summary - Hospital Course Free Text/Narrative:: Patient was admitted to swing bed from [facility] for ongoing physical therapy and pain control related to her sacral fracture. - Discharge Data Discharge Date: 11/19/17 Discharge Disposition: Home, Self-Care 01 Condition: Good - Patient Summary/Data Complications: none Consults: Consultations 11/13/17 13:55 PT Evaluation and Treatment [CONS] Routine Hospital Course: Patient has done very well through stay. Has increased her level of activity, now able to ambulate about with her walker and do well. Pain is controlled with oral meds. Appetite has been good. Will continue with oral pain meds at home. Family to assist her with meals as needed. - Patient Instructions Diet: Usual Diet as Tolerated Activity: As Tolerated - Discharge Plan Prescriptions/Med Rec: Cyclobenzaprine [Flexeril] 10 mg PO TID PRN #30 tab PRN Reason: muscle spasm Home Medications: Home Meds Ascorbic Acid [Vitamin C] 1 tab PO DAILY PRN 08/02/15 [History] Aspirin 81 mg PO DAILY 08/02/15 [History] Calcium Citrate/Vitamin D3 [Calcium Citrate + Caplet] 1,000 mg PO QAM 08/02/15 [ History] Cetirizine [ZyrTEC] 10 mg PO DAILY PRN 08/02/15 [History] Lysine 2 tab PO DAILY PRN 08/02/15 [History] Metoprolol Succinate [Toprol XL] 50 mg PO DAILY 08/02/15 [History] PARoxetine [Paxil] 20 mg PO DAILY 08/02/15 [History] Warfarin [Coumadin] 5 mg PO MOTUWETHFRSA 08/02/15 [History] Losartan Potassium 100 mg PO DAILY 03/04/16 [History] Zoledronic Acid in Water [Reclast] 5 mg IV Q365D 03/04/16 [History] amLODIPine Besylate [Norvasc] 2.5 mg PO DAILY 03/04/16 [History] ALPRAZolam [Xanax] 0.25 mg PO Q6H PRN 07/01/17 [History] Cholecalciferol (Vitamin D3) [Vitamin D3] 1,000 units PO BID 07/01/17 [History] Cyclobenzaprine HCl 10 mg PO BID PRN 07/01/17 [History] Pantoprazole Sodium 40 mg PO DAILY 07/01/17 [History] buPROPion HCl [Wellbutrin Xl] 150 mg PO DAILY 07/01/17 [History] Calcium Citrate/Vitamin D3 [Calcium Citrate - Vit D Tablet] 2,000 mg PO 1730 [History] Warfarin [Coumadin] 2.5 mg PO TONY 11/10/17 [History] oxyCODONE HCl/Acetaminophen [oxyCODONE-Acetaminophen 5-325] 1 - 2 tab PO Q4HR PRN 11/10/17 [History] Cyclobenzaprine [Flexeril] 10 mg PO TID PRN #30 tab 11/19/17 [Rx] Referrals: Annie Lawrence PA [ED Midlevel Provider] - (Follow up with Lulu in 10 days, INR prior to visit) - Discharge Summary/Plan Comment DC Time >30 min.: No Discharge Summary/Plan Comment: Discharge home Continue with oral pain meds Resume usual dose of Coumadin. Recheck INR at clinic follow up - General Info Date of Service: 11/19/17 Admission Dx/Problem (Free Text: sacral fracture Functional Status: Reports: Pain Controlled, Tolerating Diet, Ambulating - Review of Systems General: Reports: No Symptoms HEENT: Reports: No Symptoms Pulmonary: Denies: Shortness of Breath, Cough Cardiovascular: Denies: Chest Pain, Edema, Lightheadedness Gastrointestinal: Denies: Abdominal Pain, Constipation, Diarrhea, Nausea, Vomiting Genitourinary: Reports: No Symptoms Musculoskeletal: Reports: No Symptoms Skin: Reports: No Symptoms - Patient Data Vitals - Most Recent: Last Vital Signs Temp 98.1 F 11/19/17 07:31 Pulse 83 11/19/17 07:31 Resp 19 11/19/17 07:31 BP 152/73 H 11/19/17 08:17 Pulse Ox 100 11/19/17 07:31 Weight - Most Recent: 182 lb 8 oz Med Orders - Current: Current Medications Discontinued Medications Acetaminophen (Tylenol) 650 mg PO Q4H PRN PRN Reason: Pain (Mild 1-3)/fever Last Admin: 11/15/17 13:26 Dose: 650 mg Acetaminophen (Tylenol) 1,000 mg PO Q6H PRN PRN Reason: Pain (Mild 1-3)/fever Acetaminophen (Tylenol Extra Strength) 1,000 mg PO Q6H PRN PRN Reason: Pain Last Admin: 11/19/17 12:41 Dose: 1,000 mg Alprazolam (Xanax) 0.25 mg PO Q6H PRN PRN Reason: Anxiety Amlodipine Besylate (Norvasc) 2.5 mg PO DAILY [facility] Last Admin: 11/19/17 08:17 Dose: 2.5 mg Aspirin (Halfprin) 81 mg PO DAILY [facility] Last Admin: 11/19/17 08:17 Dose: 81 mg Bupropion HCl (Wellbutrin Xl) 150 mg PO DAILY [facility] Last Admin: 11/19/17 08:16 Dose: 150 mg Calcium Carbonate (Calcium Carbonate/Vitamin D 1250 Mg-200 Unit) 2 tab PO DAILY @1730 [facility] Last Admin: 11/18/17 17:38 Dose: 2 tab Calcium Carbonate (Calcium Carbonate/Vitamin D 1250 Mg-200 Unit) 1 tab PO DAILY [facility] Last Admin: 11/19/17 08:17 Dose: 1 tab Cholecalciferol (Vitamin D3) 1,000 units PO BID [facility] Last Admin: 11/19/17 08:16 Dose: 1,000 units Cyclobenzaprine HCl (Flexeril) 10 mg PO BID PRN PRN Reason: Other Last Admin: 11/14/17 14:33 Dose: 10 mg Fentanyl (Sublimaze) 25 mcg IVPUSH BID [facility] Last Admin: 11/19/17 08:18 Dose: 25 mcg Fentanyl (Sublimaze) 25 mcg IVPUSH Q6H PRN PRN Reason: Pain Loratadine (Claritin) 10 mg PO DAILY PRN PRN Reason: Allergies Losartan Potassium (Cozaar) 100 mg PO DAILY [facility] Last Admin: 11/19/17 08:17 Dose: 100 mg Metoprolol Succinate (Toprol Xl) 50 mg PO BEDTIME [facility] Last Admin: 11/18/17 20:18 Dose: 50 mg Ondansetron HCl (Zofran Odt) 4 mg PO Q4H PRN PRN Reason: nausea, able to take PO Oxycodone/Acetaminophen (Percocet 325-5 Mg) 1 - 2 tab PO Q4H PRN PRN Reason: Pain (moderate 4-6) Last Admin: 11/17/17 00:26 Dose: 1 tab Oxycodone/Acetaminophen (Percocet 325-5 Mg) 1 tab PO Q6H PRN PRN Reason: Pain (moderate 4-6) Pantoprazole Sodium (Protonix) 40 mg PO DAILY@0700 [facility] Last Admin: 11/19/17 06:30 Dose: 40 mg Paroxetine HCl (Paxil) 20 mg PO DAILY [facility] Last Admin: 11/19/17 08:16 Dose: 20 mg Polyethylene Glycol (Miralax) 17 gm PO DAILY PRN PRN Reason: Constipation Sodium Chloride (Saline Flush) 10 ml FLUSH ASDIRECTED PRN PRN Reason: Keep Vein Open Sodium Chloride (Saline Flush) 10 ml FLUSH ASDIRECTED PRN PRN Reason: Keep Vein Open Temazepam (Restoril) 15 mg PO BEDTIME PRN PRN Reason: Sleep Warfarin Sodium (Coumadin) 5 mg PO DAILY@1200 [facility] Last Admin: 11/19/17 12:41 Dose: 5 mg - Exam General: Reports: Alert, Oriented HEENT: Reports: Mucous Membr. Moist/[place] Neck: Reports: Supple Lungs: Reports: Clear to Auscultation, Normal Respiratory Effort Cardiovascular: Reports: Regular Rate, Regular Rhythm GI/Abdominal Exam: Normal Bowel Sounds, Soft, Non-Tender Back Exam: Reports: Normal Inspection, Vertebral Tenderness Extremities: Normal Inspection, No Pedal Edema *Q Meaningful Use (DIS) - VTE *Q VTE Criteria *Q: - Stroke *Q Stroke Criteria *Q: - AMI *Q AMI Criteria *Q:
== END 2017-11-19 14:55 | disposition home or self-care (01) | DRG 552 ==
LOC: CC.MS 13:40 → UNDOADMIN 13:40 → CC.MS 13:55
PROVIDERS: ADMIT Family Medicine; ATTEND Family Medicine
DX: M54.5 Low back pain (principal); S32.10XD Unspecified fracture of sacrum, subsequent encounter for fracture with routine healing; X58.XXXD Exposure to other specified factors, subsequent encounter; Z88.8 Allergy status to other drugs, medicaments and biological substances; Z79.01 Long term (current) use of anticoagulants; Z79.82 Long term (current) use of aspirin; Z79.899 Other long term (current) drug therapy
CPT/HCPCS: 36415; 85610; 97110-GP; 97530-GP; A9270-GY; J3010

== ENCOUNTER → 2018-07-15 | Day surgery (SDC) | payer MEDICARE, OTHER ==
[2018-07-15 10:00] VITALS: BP 145/63
--- NOTE | 2018-07-15 11:12 | OR ---
DATE OF OPERATION: 07/15/2018 PREOPERATIVE DIAGNOSIS: 1. CHRONIC GASTROESOPHAGEAL REFLUX DISEASE WITH A HISTORY OF LIVINGSTON'S. 2. SCREENING COLONOSCOPY. POSTOPERATIVE DIAGNOSIS: 1. CHRONIC GASTROESOPHAGEAL REFLUX DISEASE WITH A HISTORY OF LIVINGSTON'S. 2. SCREENING COLONOSCOPY. SURGEON: Eliot Brower MD PROCEDURE: 1. ESOPHAGOGASTRODUODENOSCOPY WITH BIOPSIES X4, DALY. 2. POLYP REMOVAL X1. 3. COLONOSCOPY TO APPROXIMATELY 40 CM. COMPLICATIONS: None. SPECIMEN: 1. Antral biopsy x2. 2. DALY. 3. Fundal polyp, adenomatous. 4. Distal esophageal biopsy x2. FINDINGS: 1. Full-length EGD. 2. Antral gastritis, chronic and active. 3. Fundal adenomatous polyp. 4. GERD with short-segment Livingston's with esophagitis. 5. Incomplete colonoscopy to 40 cm secondary to severe diverticulosis. RECOMMENDATIONS: Medical followup pending path reports. The patient may want to consider Cologuard as she is a high-risk colonoscopy due to her severe diverticular disease. INDICATIONS: The patient was in for routine physical. She has a history of chronic GERD with Livingston's. She is due for a routine followup EGD. She is at the point where she is due for screening colonoscopy. Annie Lawrence sent her for both procedures. PROCEDURE: The patient was prepped and draped, placed in the left lateral decubitus position. A lubricated olympus gastroscope was inserted over a bit and advanced to cricopharyngeus area and easily intubated into the esophagus. Esophageal lining was benign until its most distal portion. The patient has no hiatal hernia, but the presence of some short-segment livingston's with some active inflammation. No focal ulceration or bleeding. Two biopsies of the short segment were taken. The scope was advanced into the stomach through the pylorus into the second portion of the duodenum. This and the duodenal bulb were benign. The scope was brought back into the stomach and retroflexed. The upper fundus and cardia were essentially benign other than a few small adenomatous polyps and one larger one. The large one was removed in its entirety with the forceps. Upon straightening, the rest of the fundus appeared benign. The antrum showed some chronic gastritis with some active changes. Two biopsies were taken. There were no ulcers or erosions. Clotest was obtained as well. Air was then suctioned from the stomach and the scope removed without complication. A lubricated Olympus colonoscope was then inserted and advanced into the sigmoid area to about 40 to 45 cm range. The patient has a hyperacute turn here and a very small opening surrounded by severe diverticular disease. We put her in multiple position changes to facilitate advancing through this area, but felt it was unsafe and could not get through. We elected to stop at that point for safety purposes. Other than her diverticular disease, no other lesions were seen. Air was suctioned. Scope removed without complication. NELSY/COURTNEY /[id number]
== END ==
LOC: CC.SDS 08:06
PROVIDERS: ATTEND Family Medicine
DX: Z12.11 Encounter for screening for malignant neoplasm of colon (principal); K31.7 Polyp of stomach and duodenum; K57.30 Diverticulosis of large intestine without perforation or abscess without bleeding; K29.50 Unspecified chronic gastritis without bleeding; I10 Essential (primary) hypertension; K21.0 Gastro-esophageal reflux disease with esophagitis; Z88.1 Allergy status to other antibiotic agents; Z88.8 Allergy status to other drugs, medicaments and biological substances; Z79.899 Other long term (current) drug therapy; Z79.82 Long term (current) use of aspirin
CPT/HCPCS: 43239; 87081; G0121; J2704; J7120; 00813; 88305

== ENCOUNTER → 2019-03-31 | Day surgery (SDC) | payer MEDICARE, OTHER ==
[2019-03-31 12:13] VITALS: PULSE 66
[2019-03-31 13:40] VITALS: BP 173/82
--- NOTE | 2019-04-03 12:59 | OR ---
DATE OF OPERATION: 03/31/2019 PREOPERATIVE DIAGNOSIS: DYSPHAGIA WITH A HISTORY OF GASTROESOPHAGEAL REFLUX DISEASE AND JAMA'S. POSTOPERATIVE DIAGNOSIS: DYSPHAGIA WITH A HISTORY OF GASTROESOPHAGEAL REFLUX DISEASE AND JAMA'S. SURGEON: Eliot Brower MD PROCEDURE: EGD WITH BIOPSIES X5, DALY. ANESTHESIA: MAC via MILK DELIVERY DRIVER. COMPLICATIONS: None. SPECIMEN: 1. Antral biopsy x2. 2. Antral DALY. 3. Distal esophageal biopsies x3. FINDINGS: 1. Full-length EGD. 2. Chronic antral gastritis. 3. Small hiatal hernia with reflux esophagitis. 4. Short-segment Jama's associated with esophagitis. RECOMMENDATIONS: Medical followup with Arely Lawrence. INDICATIONS: The patient had apparently been having ongoing issues with her reflux and feelings of dysphagia at times. She has had some weight loss. Arely recommended repeat EGD. DESCRIPTION OF PROCEDURE: The patient was prepped and draped, placed in the left lateral decubitus position. A lubricated Olympus gastroscope was inserted over a bit, advanced to cricopharyngeus area, and easily intubated in the esophagus. The esophageal lining was benign in its entire course until its most distal portion. The patient had a small hiatal hernia present with spontaneous GERD. There is some linear esophagitis of the last 4 to 5 cm of the esophagus. There appears to be a short-segment Jama's area as well. We did 2 biopsies of that along with an area of the ulceration. The scope was advanced into the stomach, through the pylorus, into the second portion of the duodenum. This and the duodenal bulb were unremarkable. The scope was brought back into the stomach and retroflexed. Upper fundus and cardia were benign, other than her adenomatous polyps which have been present previously and many removed, none of the 2 or 3 seen were taken out today. The patient does appear to have some chronic gastritis of the antrum. Two biopsies were taken. I did do a CLOtest as well. Air was then suctioned from the stomach and the scope was removed without complication. NELSY/COURTNEY /[id number]
== END ==
LOC: CC.SDS 09:31
PROVIDERS: ATTEND Family Medicine
DX: K22.70 Barrett's esophagus without dysplasia (principal); K21.0 Gastro-esophageal reflux disease with esophagitis; K29.50 Unspecified chronic gastritis without bleeding; K44.9 Diaphragmatic hernia without obstruction or gangrene; D13.1 Benign neoplasm of stomach; K22.8 Other specified diseases of esophagus; N32.81 Overactive bladder; R63.4 Abnormal weight loss; Z68.25 Body mass index [BMI] 25.0-25.9, adult; Z88.1 Allergy status to other antibiotic agents; Z88.8 Allergy status to other drugs, medicaments and biological substances; Z79.899 Other long term (current) drug therapy
CPT/HCPCS: 36415; 43239; 85610; 87081; J2704; J7120; 00731; 88305; 88342

== ENCOUNTER 2020-11-18 19:17 | Inpatient (IN) | payer MEDICARE, OTHER ==
[2020-11-18 19:54] LABS: CHLORIDE,CL 88 mEq/L (98-106)
[2020-11-18 19:55] LABS: SODIUM,NA 124 mEq/L (136-145)
--- NOTE | 2020-11-18 20:05 | EDM.PDOC ---
ED HPI GENERAL MEDICAL PROBLEM - General Chief Complaint: General Stated Complaint: HIP PAIN Time Seen by Provider: 11/18/20 19:45 Source of Information: Reports: Patient, EMS Notes Reviewed, Family History Limitations: Reports: No Limitations - History of Present Illness INITIAL COMMENTS - FREE TEXT/NARRATIVE: Romana is a pleasant 75 yo female who presents to the ED via [facility]. She reports that last evening she went to bed about 7:30 pm. Reports the next thing she remembers is that she woke up on the floor at 8:30 pm. Unsure of events leading up to fall. She reports that all evening and day today she was too weak to get up. She reports she laid on the floor waiting for someone to come as she was unable to get up or crawl to her phone. She does not believe she hit her head, however does not recall ~1hr time span prior to fall. She is on Coumadin so I did decide to call trauma code once these details emerged. Family report she was full of urine and stool when they found her. Patient reports her right groin/hip hurt. Rates pain 4/10. She was able to ambulate short distance into ED with assistance. She is alert and oriented. She is speaking in full complete sentences. GCS 15. She is in no acute distress at time of presentation. Does report she just feels very weak. Has not had anything to eat or drink since last evening. She denies any headache, dizziness, vision changes, N/V/D, urinary symptoms, chest pain, shortness of breath. Reports prior to falling last evening she had been feeling fine. Family reported she admitted to them that she took a Xanax and a Benadryl prior to going to bed. Onset Date: 11/17/20 Onset Time: 20:30 Location: Reports: Lower Extremity, Right Quality: Reports: Ache Severity: Moderate Associated Symptoms: Reports: No Other Symptoms. Denies: Confusion, Chest Pain, Cough, cough w sputum, Diaphoresis, Fever/Chills, Headaches, Loss of Appetite, Malaise, Nausea/Vomiting, Rash, Seizure, Shortness of Breath, Syncope, Weakness Right Groin Pain Score (Numeric/FACES): 4 Generalized Pain Score (Numeric/FACES): 3 - Related Data Allergies Allergy/AdvReac Type Severity Reaction Status Date / Time cephalexin AdvReac Nausea Verified 11/18/20 21:33 citalopram hydrobromide AdvReac Nausea Verified 11/18/20 21:33 [From Celexa] diclofenac sodium AdvReac Nausea Verified 11/18/20 21:33 [From Arthrotec] misoprostol [From Arthrotec] AdvReac Nausea Verified 11/18/20 21:33 sulfamethoxazole AdvReac Nausea Verified 11/18/20 21:33 [From Bactrim] trimethoprim [From Bactrim] AdvReac Nausea Verified 11/18/20 21:33 Home Meds: Home Meds Ascorbic Acid [Vitamin C] 1 tab PO DAILY PRN 08/02/15 [History] Calcium Citrate/Vitamin D3 [Calcium Citrate + Caplet] 1,000 mg PO TID 08/02/15 [History] Metoprolol Succinate [Toprol XL] 50 mg PO DAILY 08/02/15 [History] PARoxetine [Paxil] 20 mg PO DAILY 08/02/15 [History] Warfarin [Coumadin] 5 mg PO DAILY 08/02/15 [History] Losartan Potassium 100 mg PO DAILY 03/04/16 [History] Zoledronic Acid in Water [Reclast] 5 mg IV Q365D 03/04/16 [History] ALPRAZolam [Xanax] 0.25 mg PO Q6H PRN 07/01/17 [History] Cholecalciferol (Vitamin D3) [Vitamin D3] 1,000 units PO DAILY 07/01/17 [History] Pantoprazole Sodium 40 mg PO DAILY 07/01/17 [History] buPROPion HCL [Wellbutrin Xl] 150 mg PO DAILY 07/01/17 [History] calcium polycarbophiL [Fibercon] 1 tab PO DAILY PRN 03/30/19 [History] Fesoterodine Fumarate [Toviaz] 8 mg PO DAILY 05/16/20 [History] Omeprazole 20 mg PO DAILY 05/16/20 [History] Oxybutynin Chloride 5 mg PO DAILY 05/16/20 [History] amLODIPine Besylate [Amlodipine Besylate] 5 mg PO DAILY 05/16/20 [History] Past Medical History HEENT History: Reports: Allergic Rhinitis, Hard of Hearing, Impaired Vision Cardiovascular History: Reports: Blood Clots/VTE/DVT, Heart Murmur, Hypertension, Other (See Below) Other Cardiovascular History: weakened heart valves Respiratory History: Reports: PE Gastrointestinal History: Reports: Diverticulosis, GERD Genitourinary History: Reports: Other (See Below) Other Genitourinary History: States "bladder repair 3x" Musculoskeletal History: Reports: Arthritis, Back Pain, Chronic, Osteoporosis Neurological History: Reports: None Psychiatric History: Reports: Anxiety, Depression Endocrine/Metabolic History: Reports: None Hematologic History: Reports: None Immunologic History: Reports: None Oncologic (Cancer) History: Reports: None Dermatologic History: Reports: None - Infectious Disease History Infectious Disease History: Reports: None - Past Surgical History Head Surgeries/Procedures: Reports: None HEENT Surgical History: Reports: Cataract Surgery Cardiovascular Surgical History: Reports: None GI Surgical History: Reports: Colonoscopy Female Surgical History: Reports: Hysterectomy, Oophorectomy Musculoskeletal Surgical History: Reports: Hip Replacement, Other (See Below) Other Musculoskeletal Surgeries/Procedures:: lower back surgery for a pinched nerve Social & Family History - Family History Family Medical History: No Pertinent Family History - Tobacco Use Tobacco Use Status *Q: Former Tobacco User Used Tobacco, but Quit: Yes Month/Year Tobacco Last Used: 1971 - Caffeine Use Caffeine Use: Reports: Coffee - Recreational Drug Use Recreational Drug Use: No ED ROS GENERAL - Review of Systems Review Of Systems: Comprehensive ROS is negative, except as noted in HPI. ED EXAM, GENERAL - Physical Exam Exam: See Below Exam Limited By: No Limitations General Appearance: Alert, WD/WN, No Apparent Distress Eye Exam: Bilateral Eye: EOMI, Normal Fundi, Normal Inspection, PERRL Nose: Normal Inspection, Normal Mucosa, No Blood Throat/Mouth: Normal Inspection, Normal Lips, Normal Teeth, Normal Gums, Normal Oropharynx, Normal Voice, No Airway Compromise Head: Atraumatic, Normocephalic Neck: Normal Inspection, Supple, Non-Tender, Full Range of Motion Respiratory/Chest: No Respiratory Distress, Lungs Clear, Normal Breath Sounds, No Accessory Muscle Use, Chest Non-Tender Cardiovascular: Normal Peripheral Pulses, Regular Rate, Rhythm, No Edema, Systolic Murmur (grade 4) Peripheral Pulses: 2+: Radial (L), Radial (R), Dorsalis Pedis (L), Dorsalis Pedis (R) GI/Abdominal: Normal Bowel Sounds, Soft, Non-Tender, No Organomegaly, No Distention, No Abnormal Bruit, No Mass Back Exam: Normal Inspection, Full Range of Motion, NT Extremities: Normal Inspection, Normal Capillary Refill, Leg Pain (right groin), Limited Range of Motion (difficulty flexing right hip ) Neurological: Alert, Oriented, CN II-XII Intact, Normal Cognition, No Motor/Sensory Deficits Psychiatric: Normal Affect, Normal Mood Skin Exam: Ecchymosis #1 Interpretation EKG Date: 11/18/20 Rhythm: Other (Sinus Tachycardia) Leon: Normal P-Wave: Present QRS: Normal ST-T: Normal QT: Normal Comparison: NA - No Prior EKG Course - Vital Signs Last Recorded V/S: Last Vital Signs Temp 99 F 11/19/20 07:53 Pulse 90 11/19/20 07:53 Resp 18 11/19/20 07:53 BP 143/80 H 11/19/20 07:53 Pulse Ox 96 11/19/20 07:53 - Orders/Labs/Meds Orders: Active Orders 24 hr Category Date Time Status Head wo Cont [CT] Stat Exams 11/18/20 20:22 Taken Hip Min 2V or 3V w Pelvis Rt [CR] Stat Exams 11/18/20 19:24 Taken Medication Orders Acetaminophen (Tylenol) 650 mg PO Q4H PRN PRN Reason: Pain (Mild 1-3)/fever Last Admin: 11/19/20 11:22 Dose: 650 mg Documented by: CHARLES Alprazolam (Xanax) 0.25 mg PO Q6H PRN PRN Reason: Anxiety Bupropion HCl (Wellbutrin Xl) 150 mg PO DAILY [facility] Cholecalciferol (Vitamin D3) mcg PO DAILY [facility] Enoxaparin Sodium (Lovenox) 30 mg SUBCUT Q24H CELESTE Last Admin: 11/19/20 00:23 Dose: 30 mg Documented by: MADHU Sodium Chloride (Normal Saline) 1,000 mls @ 100 mls/hr IV ASDIRECTED CELESTE Stop: 11/19/20 09:57 Last Admin: 11/19/20 00:26 Dose: 100 mls/hr Documented by: MADHU Losartan Potassium (Cozaar) 100 mg PO DAILY [facility] Non-Formulary Medication (Amlodipine Besylate [Amlodipine Besylate]) 5 mg PO DAILY [facility] Non-Formulary Medication (Calcium Polycarbophil [Fibercon]) 1 tab PO DAILY PRN PRN Reason: Other Non-Formulary Medication (Calcium Citrate/Vitamin D3 [Calcium Citrate + Caplet]) 1,000 mg PO TID [facility] Non-Formulary Medication (Fesoterodine Fumarate [Toviaz]) 8 mg PO DAILY [facility] Non-Formulary Medication (Metoprolol Succinate [Toprol Xl]) 50 mg PO DAILY [facility] Non-Formulary Medication (Omeprazole [Omeprazole]) 20 mg PO DAILY [facility] Oxybutynin Chloride (Oxybutynin) 5 mg PO DAILY [facility] Pantoprazole Sodium (Take Home: Pantoprazole 40 Mg, 1 Tab Pack) packet PO DAILY [facility] Paroxetine HCl (Paxil) 20 mg PO DAILY CELESTE Warfarin Sodium (Coumadin) 5 mg PO DAILY [facility] Labs: Laboratory Tests 11/18/20 11/18/20 11/18/20 Range/Units 19:24 19:39 19:39 WBC 7.9 (5.0-10.0) 10^3/uL RBC 4.15 (4.00-5.50) 10^6/uL Hgb 12.8 (12.0-16.0) g/dL Hct 36.0 L (37.0-47.0) % MCV 86.7 (82.0-94.0) fL MCH 30.8 (27.0-32.0) pg MCHC 35.6 (33.0-38.0) g/dL RDW Coeff of Angie 13.6 (11.0-15.0) % Plt Count 344 (150-400) 10^3/uL Neut % (Auto) 83.5 (35-85) % Lymph % (Auto) 6.5 L (10-55) % Sharkey % (Auto) 9.9 (0-16) % Eos % (Auto) 0 (0-5) % Baso % (Auto) 0.1 (0-3) % Neut # (Auto) 6.58 (1.80-7.00) 10^3/uL Lymph # (Auto) 0.51 L (1.00-4.80) 10^3/uL Sharkey # (Auto) 0.78 (0.00-0.80) 10^3/uL Eos # (Auto) 0.00 (0.00-0.45) 10^3/uL Baso # (Auto) 0.01 10^3/uL Sodium 124 L* (136-145) mEq/L Potassium 4.3 (3.5-5.0) mEq/L Chloride 88 L (98-106) mEq/L Carbon Dioxide 27 (21-32) mmol/L BUN 8 (7-18) mg/dL Creatinine 0.9 (0.6-1.0) mg/dL Est Cr Clr Drug Dosing 51.71 mL/min Estimated GFR (MDRD) > 60 (>=60) mL/min Glucose 173 H D (75-99) mg/dL Calcium 8.5 (8.4-10.1) mg/dL Total Bilirubin 0.9 (0.0-1.0) mg/dL AST 45 H (15-37) U/L ALT 21 (12-78) U/L Alkaline Phosphatase 75 (46-116) U/L Creatine Kinase 964 H (21-215) U/L C-Reactive Protein 0.5 (0.2-0.8) mg/dL Total Protein 6.9 (6.4-8.2) g/dL Albumin 3.2 L (3.4-5.0) g/dL Urine Color Yellow (YELLOW) Urine Appearance Slightly cloudy (CLEAR) Urine pH 7.0 (4.5-8.0) Ur Specific [place] 1.025 H (1.003-1.020) Urine Protein 30 H (NEGATIVE) mg/dL Urine Glucose (UA) Negative (NEGATIVE) mg/dL Urine Ketones 15 H (NEGATIVE) mg/dL Urine Occult Blood Trace-intact H (NEGATIVE) Urine Nitrite Negative (NEGATIVE) Urine Bilirubin Negative (NEGATIVE) Urine Urobilinogen 0.2 (0.2-1.0) EU/dL Ur Leukocyte Esterase Small H (NEGATIVE) Urine RBC 5-10 H (0-5) /HPF Urine WBC 50-75 H (0-5) /HPF Ur Epithelial Cells Few H (NOT SEEN) /HPF Urine Bacteria Moderate H (NOT SEEN) /HPF Urinalysis Comment Meds: Medications Generic Name Dose Route Start Last Admin Trade Name Freq PRN Reason Stop Dose Admin Acetaminophen 650 mg 11/18/20 23:58 11/19/20 11:22 Tylenol PO 650 mg Q4H PRN Administration Pain (Mild 1-3)/fever Alprazolam 0.25 mg 11/18/20 23:58 Xanax PO Q6H PRN Anxiety Bupropion HCl 150 mg 11/19/20 08:00 Wellbutrin Xl PO DAILY [facility] Cholecalciferol mcg 11/19/20 08:00 Vitamin D3 PO DAILY [facility] Enoxaparin Sodium 30 mg 11/18/20 23:58 11/19/20 00:23 Lovenox SUBCUT 30 mg Q24H CELESTE Administration Sodium Chloride 1,000 mls @ 100 mls/hr 11/18/20 23:58 11/19/20 00:26 Normal Saline IV 11/19/20 09:57 100 mls/hr ASDIRECTED CELESTE Administration Losartan Potassium 100 mg 11/19/20 08:00 Cozaar PO DAILY CELESTE Non-Formulary Medication 5 mg 11/19/20 08:00 Amlodipine Besylate [Amlodipine Besylate] PO DAILY [facility] Non-Formulary Medication 1 tab 11/18/20 23:58 Calcium Polycarbophil [Fibercon] PO DAILY PRN Other Non-Formulary Medication 1,000 mg 11/19/20 08:00 Calcium Citrate/Vitamin D3 [Calcium Citrate + Caplet] PO TID CELESTE Non-Formulary Medication 8 mg 11/19/20 08:00 Fesoterodine Fumarate [Toviaz] PO DAILY [facility] Non-Formulary Medication 50 mg 11/19/20 08:00 Metoprolol Succinate [Toprol Xl] PO DAILY [facility] Non-Formulary Medication 20 mg 11/19/20 08:00 Omeprazole [Omeprazole] PO DAILY [facility] Oxybutynin Chloride 5 mg 11/19/20 08:00 Oxybutynin PO DAILY [facility] Pantoprazole Sodium packet 11/19/20 08:00 Take Home: Pantoprazole 40 Mg, 1 Tab Pack PO DAILY [facility] Paroxetine HCl 20 mg 11/19/20 08:00 Paxil PO DAILY [facility] Warfarin Sodium 5 mg 11/19/20 08:00 Coumadin PO DAILY [facility] Discontinued Medications Generic Name Dose Route Start Last Admin Trade Name Freq PRN Reason Stop Dose Admin Sodium Chloride 1,000 mls @ 500 mls/hr 11/18/20 20:08 11/18/20 20:32 Normal Saline IV 11/18/20 22:07 500 mls/hr .BOLUS ONE Administration Metoprolol Tartrate 5 mg 11/18/20 23:58 11/19/20 00:22 Lopressor IVPUSH 11/18/20 23:59 Not Given ONETIME ONE - Radiology Interpretation Free Text/Narrative:: Head CT negative for acute findings. CT Results Date: 11/18/20 CT Results Time: 20:41 - Re-Assessments/Exams Free Text/Narrative Re-Assessment/Exam: 11/18/20 20:41 Xray appear negative per my review. Discussed lab results, CT and xray findings with patient and daughter. Patient does not require cspine, chest or abd/pelvis imaging as she has no complaints related to these areas. She denies any pain throughout. Pelvis is stable. She is moving neck without any pain. Departure - Departure Time of Disposition: 21:57 Disposition: Refer to Observation Condition: Fair Clinical Impression: Rhabdomyolysis, Hyponatremia - Discharge Information *PRESCRIPTION DRUG MONITORING PROGRAM REVIEWED*: Not Applicable *COPY OF PRESCRIPTION DRUG MONITORING REPORT IN PATIENT KRYSTYNA: Not Applicable Sepsis Event Note (ED) - Evaluation Sepsis Screening Result: No Definite Risk - Problem List & Annotations (1) Rhabdomyolysis SNOMED Code(s): 222220167 Code(s): M62.82 - RHABDOMYOLYSIS Status: Acute Current Visit: No (2) Hyponatremia SNOMED Code(s): 97669258 Code(s): E87.1 - HYPO-OSMOLALITY AND HYPONATREMIA Status: Acute Current Visit: No (3) UTI (urinary tract infection) SNOMED Code(s): 56318303 Code(s): N39.0 - URINARY TRACT INFECTION, SITE NOT SPECIFIED Status: Acute Current Visit: Yes Qualifiers: Urinary tract infection type: acute cystitis Hematuria presence: without hematuria Qualified Code(s): N30.00 - Acute cystitis without hematuria (4) Hypertension SNOMED Code(s): 33644375 Code(s): I10 - ESSENTIAL (PRIMARY) HYPERTENSION Status: Acute Current Visit: Yes Qualifiers: Hypertension type: essential hypertension Qualified Code(s): I10 - Essential (primary) hypertension - My Orders Last 24 Hours: My Active Orders 11/18/20 19:24 Hip Min 2V or 3V w Pelvis Rt [CR] Stat 11/18/20 20:22 Head wo Cont [CT] Stat - Assessment/Plan Admission H&P: Please use this note as an admission H&P Last 24 Hours: My Active Orders 11/18/20 19:24 Hip Min 2V or 3V w Pelvis Rt [CR] Stat 11/18/20 20:22 Head wo Cont [CT] Stat Assessment:: Rhabdomyolysis Hyponatremia UTI Generalized Weakness Hypertension Plan: 75 yo female presents to the ED with c/o fall. She was unable to get herself up, so unfortanely laid on the floor for 24+ hours until family came to check on her. She denies significant pain except some pain to right groin. Xrays completed of right hip/pelvis. No fracture noted. She did undergo head CT as she had no recollection of fall and approximately a 1 hr time span prior to fall. She is on Coumadin. Head CT negative for acute findings. Throughout ED stay she is alert and oriented and in no acute distress. GCS remained 15 throughout ED stay. She denies any other complaints. Labs significant for Na 124, Cl 88, Creatinine Kinase 964. UA also positive. Patient will be admitted for Rhabdomyolysis, hyponatremia and UTI. Was unable to give urine sample in ER, but was able after some IVF. UA positive. Will start IVF and IV antibiotics. Patient did receive 1 L NS fluid bolus in ED. Will continue IVF. Consult PT for strengthening. Case management for assistance with DC planning. Recheck labs in am.
[2020-11-18] MEDS ORDERED: Sodium Chloride 0.9% 1,000 ML IV ONE (20:08)
[2020-11-18] MEDS ORDERED: Metoprolol Tartrate 5 MG/5 ML SDV IVPUSH ONE (23:58)
[2020-11-18] MEDS ORDERED: Sodium Chloride 0.9% 1,000 ML IV SCH (23:58)
[2020-11-18] MEDS ORDERED: ALPRAZolam 0.25 MG Tab PO PRN (23:58)
[2020-11-18] MEDS ORDERED: Enoxaparin 30 MG/0.3 ML Syringe SUBCUT SCH (23:58)
[2020-11-19] MEDS ORDERED: Take Home: Pantoprazole 40 MG Tab.CR, 1 Tab Pack PO SCH (08:00)
[2020-11-19 08:36] LABS: CHLORIDE,CL 92 mEq/L (98-106); SODIUM,NA 127 mEq/L (136-145)
[2020-11-19] MEDS ORDERED: cefTRIAXone 1 GM Vial IVPUSH SCH (09:00)
[2020-11-19] MEDS ORDERED: Magnesium Sulfate/Water 2 GM/50 ML BAG IV ONE (09:00)
--- NOTE | 2020-11-19 09:55 | PCM.PN ---
- General Info Date of Service: 11/19/20 Admission Dx/Problem (Free Text): Rhabdomyolysis UTI Fall at home Hyponatremia Generalized Weakness Hypertension Subjective Update: Romana is a 75 yo female who was admitted observation status to the hospital from the ED with UTI, rhabdomyolysis, fall, hyponatremia, generalized weakness and hypertension. She reports she is feeling achy this morning but otherwise denies complaints. Strength is improving. She denies any urinary symptoms. Reports her appetite is good. VSS on RA. She has not yet had her home medications. BP on elevated side. Functional Status: Reports: Pain Controlled, Tolerating Diet, Ambulating, Urina ting. Denies: New Symptoms - Review of Systems General: Reports: Weakness. Denies: Fever, Malaise, Chills HEENT: Reports: No Symptoms Pulmonary: Reports: No Symptoms Cardiovascular: Reports: No Symptoms Gastrointestinal: Reports: No Symptoms. Denies: Abdominal Pain, Constipation, Decreased Appetite, Diarrhea, Nausea, Vomiting Genitourinary: Reports: Frequency. Denies: Dysuria, Urgency Musculoskeletal: Reports: Other (generalized achiness) Skin: Reports: Bruising Neurological: Reports: Weakness. Denies: Confusion, Dizziness, Headache, Numbness, Tingling Psychiatric: Reports: No Symptoms - Patient Data Vitals - Most Recent: Last Vital Signs Temp 99 F 11/19/20 07:53 Pulse 90 11/19/20 07:53 Resp 18 11/19/20 07:53 BP 143/80 H 11/19/20 07:53 Pulse Ox 96 11/19/20 07:53 Weight - Most Recent: 162 lb 3.2 oz Lab Results Last 24 Hours: Laboratory Results - last 24 hr 11/18/20 11/18/20 11/18/20 Range/Units 19:24 19:39 19:39 WBC 7.9 (5.0-10.0) 10^3/uL RBC 4.15 (4.00-5.50) 10^6/uL Hgb 12.8 (12.0-16.0) g/dL Hct 36.0 L (37.0-47.0) % MCV 86.7 (82.0-94.0) fL MCH 30.8 (27.0-32.0) pg MCHC 35.6 (33.0-38.0) g/dL RDW Coeff of Angie 13.6 (11.0-15.0) % Plt Count 344 (150-400) 10^3/uL Neut % (Auto) 83.5 (35-85) % Lymph % (Auto) 6.5 L (10-55) % [place] % (Auto) 9.9 (0-16) % Eos % (Auto) 0 (0-5) % Baso % (Auto) 0.1 (0-3) % Neut # (Auto) 6.58 (1.80-7.00) 10^3/uL Lymph # (Auto) 0.51 L (1.00-4.80) 10^3/uL [place] # (Auto) 0.78 (0.00-0.80) 10^3/uL Eos # (Auto) 0.00 (0.00-0.45) 10^3/uL Baso # (Auto) 0.01 10^3/uL PT (9.3-11.4) SEC INR (0.92-1.18) Sodium 124 L* (136-145) mEq/L Potassium 4.3 (3.5-5.0) mEq/L Chloride 88 L (98-106) mEq/L Carbon Dioxide 27 (21-32) mmol/L BUN 8 (7-18) mg/dL Creatinine 0.9 (0.6-1.0) mg/dL Est Cr Clr Drug Dosing 51.71 mL/min Estimated GFR (MDRD) > 60 (>=60) mL/min Glucose 173 H D (75-99) mg/dL Calcium 8.5 (8.4-10.1) mg/dL Magnesium (1.8-2.4) mg/dL Total Bilirubin 0.9 (0.0-1.0) mg/dL AST 45 H (15-37) U/L ALT 21 (12-78) U/L Alkaline Phosphatase 75 (46-116) U/L Creatine Kinase 964 H (21-215) U/L C-Reactive Protein 0.5 (0.2-0.8) mg/dL Total Protein 6.9 (6.4-8.2) g/dL Albumin 3.2 L (3.4-5.0) g/dL Urine Color Yellow (YELLOW) Urine Appearance Slightly cloudy (CLEAR) Urine pH 7.0 (4.5-8.0) Ur Specific [place] 1.025 H (1.003-1.020) Urine Protein 30 H (NEGATIVE) mg/dL Urine Glucose (UA) Negative (NEGATIVE) mg/dL Urine Ketones 15 H (NEGATIVE) mg/dL Urine Occult Blood Trace-intact H (NEGATIVE) Urine Nitrite Negative (NEGATIVE) Urine Bilirubin Negative (NEGATIVE) Urine Urobilinogen 0.2 (0.2-1.0) EU/dL Ur Leukocyte Esterase Small H (NEGATIVE) Urine RBC 5-10 H (0-5) /HPF Urine WBC 50-75 H (0-5) /HPF Ur Epithelial Cells Few H (NOT SEEN) /HPF Urine Bacteria Moderate H (NOT SEEN) /HPF Urinalysis Comment 11/19/20 11/19/20 11/19/20 Range/Units 07:56 07:56 07:56 WBC 6.2 (5.0-10.0) 10^3/uL RBC 3.94 L (4.00-5.50) 10^6/uL Hgb 11.9 L (12.0-16.0) g/dL Hct 34.5 L (37.0-47.0) % MCV 87.6 (82.0-94.0) fL MCH 30.2 (27.0-32.0) pg MCHC 34.5 (33.0-38.0) g/dL RDW Coeff of Angie 13.8 (11.0-15.0) % Plt Count 336 (150-400) 10^3/uL Neut % (Auto) 66.4 (35-85) % Lymph % (Auto) 16.2 (10-55) % [place] % (Auto) 16.5 H (0-16) % Eos % (Auto) 0.6 (0-5) % Baso % (Auto) 0.3 (0-3) % Neut # (Auto) 4.13 (1.80-7.00) 10^3/uL Lymph # (Auto) 1.01 (1.00-4.80) 10^3/uL [place] # (Auto) 1.03 H (0.00-0.80) 10^3/uL Eos # (Auto) 0.04 (0.00-0.45) 10^3/uL Baso # (Auto) 0.02 10^3/uL PT 21.1 H (9.3-11.4) SEC INR 2.03 H (0.92-1.18) Sodium (136-145) mEq/L Potassium (3.5-5.0) mEq/L Chloride (98-106) mEq/L Carbon Dioxide (21-32) mmol/L BUN (7-18) mg/dL Creatinine (0.6-1.0) mg/dL Est Cr Clr Drug Dosing mL/min Estimated GFR (MDRD) (>=60) mL/min Glucose (75-99) mg/dL Calcium (8.4-10.1) mg/dL Magnesium 1.6 L (1.8-2.4) mg/dL Total Bilirubin (0.0-1.0) mg/dL AST (15-37) U/L ALT (12-78) U/L Alkaline Phosphatase (46-116) U/L Creatine Kinase (21-215) U/L C-Reactive Protein (0.2-0.8) mg/dL Total Protein (6.4-8.2) g/dL Albumin (3.4-5.0) g/dL Urine Color (YELLOW) Urine Appearance (CLEAR) Urine pH (4.5-8.0) Ur Specific [place] (1.003-1.020) Urine Protein (NEGATIVE) mg/dL Urine Glucose (UA) (NEGATIVE) mg/dL Urine Ketones (NEGATIVE) mg/dL Urine Occult Blood (NEGATIVE) Urine Nitrite (NEGATIVE) Urine Bilirubin (NEGATIVE) Urine Urobilinogen (0.2-1.0) EU/dL Ur Leukocyte Esterase (NEGATIVE) Urine RBC (0-5) /HPF Urine WBC (0-5) /HPF Ur Epithelial Cells (NOT SEEN) /HPF Urine Bacteria (NOT SEEN) /HPF Urinalysis Comment 11/19/20 Range/Units 07:56 WBC (5.0-10.0) 10^3/uL RBC (4.00-5.50) 10^6/uL Hgb (12.0-16.0) g/dL Hct (37.0-47.0) % MCV (82.0-94.0) fL MCH (27.0-32.0) pg MCHC (33.0-38.0) g/dL RDW Coeff of Angie (11.0-15.0) % Plt Count (150-400) 10^3/uL Neut % (Auto) (35-85) % Lymph % (Auto) (10-55) % [place] % (Auto) (0-16) % Eos % (Auto) (0-5) % Baso % (Auto) (0-3) % Neut # (Auto) (1.80-7.00) 10^3/uL Lymph # (Auto) (1.00-4.80) 10^3/uL [place] # (Auto) (0.00-0.80) 10^3/uL Eos # (Auto) (0.00-0.45) 10^3/uL Baso # (Auto) 10^3/uL PT (9.3-11.4) SEC INR (0.92-1.18) Sodium 127 L (136-145) mEq/L Potassium 3.8 (3.5-5.0) mEq/L Chloride 92 L (98-106) mEq/L Carbon Dioxide 25 (21-32) mmol/L BUN 9 (7-18) mg/dL Creatinine 0.9 (0.6-1.0) mg/dL Est Cr Clr Drug Dosing 51.71 mL/min Estimated GFR (MDRD) > 60 (>=60) mL/min Glucose 108 H D (75-99) mg/dL Calcium 8.0 L (8.4-10.1) mg/dL Magnesium (1.8-2.4) mg/dL Total Bilirubin (0.0-1.0) mg/dL AST (15-37) U/L ALT (12-78) U/L Alkaline Phosphatase (46-116) U/L Creatine Kinase 743 H (21-215) U/L C-Reactive Protein (0.2-0.8) mg/dL Total Protein (6.4-8.2) g/dL Albumin (3.4-5.0) g/dL Urine Color (YELLOW) Urine Appearance (CLEAR) Urine pH (4.5-8.0) Ur Specific [place] (1.003-1.020) Urine Protein (NEGATIVE) mg/dL Urine Glucose (UA) (NEGATIVE) mg/dL Urine Ketones (NEGATIVE) mg/dL Urine Occult Blood (NEGATIVE) Urine Nitrite (NEGATIVE) Urine Bilirubin (NEGATIVE) Urine Urobilinogen (0.2-1.0) EU/dL Ur Leukocyte Esterase (NEGATIVE) Urine RBC (0-5) /HPF Urine WBC (0-5) /HPF Ur Epithelial Cells (NOT SEEN) /HPF Urine Bacteria (NOT SEEN) /HPF Urinalysis Comment Med Orders - Current: Current Medications Acetaminophen (Tylenol) 650 mg PO Q4H PRN PRN Reason: Pain (Mild 1-3)/fever Alprazolam (Xanax) 0.25 mg PO Q6H PRN PRN Reason: Anxiety Bupropion HCl (Wellbutrin Xl) 150 mg PO DAILY [facility] Cholecalciferol (Vitamin D3) mcg PO DAILY [facility] Enoxaparin Sodium (Lovenox) 30 mg SUBCUT Q24H [facility] Last Admin: 11/19/20 00:23 Dose: 30 mg Documented by: Sodium Chloride (Normal Saline) 1,000 mls @ 100 mls/hr IV ASDIRECTED [facility] Stop: 11/19/20 09:57 Last Admin: 11/19/20 00:26 Dose: 100 mls/hr Documented by: Losartan Potassium (Cozaar) 100 mg PO DAILY [facility] Non-Formulary Medication (Amlodipine Besylate [Amlodipine Besylate]) 5 mg PO DAILY [facility] Non-Formulary Medication (Calcium Polycarbophil [Fibercon]) 1 tab PO DAILY PRN PRN Reason: Other Non-Formulary Medication (Calcium Citrate/Vitamin D3 [Calcium Citrate + Caplet]) 1,000 mg PO TID [facility] Non-Formulary Medication (Fesoterodine Fumarate [Toviaz]) 8 mg PO DAILY [facility] Non-Formulary Medication (Metoprolol Succinate [Toprol Xl]) 50 mg PO DAILY [facility] Non-Formulary Medication (Omeprazole [Omeprazole]) 20 mg PO DAILY [facility] Oxybutynin Chloride (Oxybutynin) 5 mg PO DAILY [facility] Pantoprazole Sodium (Take Home: Pantoprazole 40 Mg, 1 Tab Pack) packet PO DAILY [facility] Paroxetine HCl (Paxil) 20 mg PO DAILY [facility] Warfarin Sodium (Coumadin) 5 mg PO DAILY [facility] Discontinued Medications Sodium Chloride (Normal Saline) 1,000 mls @ 500 mls/hr IV .BOLUS ONE Stop: 11/18/20 22:07 Last Admin: 11/18/20 20:32 Dose: 500 mls/hr Documented by: Metoprolol Tartrate (Lopressor) 5 mg IVPUSH ONETIME ONE Stop: 11/18/20 23:59 Last Admin: 11/19/20 00:22 Dose: Not Given Documented by: - Exam Quality Assessment: DVT Prophylaxis General: Alert, Oriented, No Acute Distress HEENT: Pupils Equal, Pupils Reactive, EOMI, Mucous Membr. Moist/[place] Neck: Supple Lungs: Clear to Auscultation, Normal Respiratory Effort Cardiovascular: Regular Rhythm, Tachycardia, Murmurs GI/Abdominal Exam: Normal Bowel Sounds, Soft, Non-Tender, No Organomegaly, No Distention, No Abnormal Bruit, No Mass, Pelvis Stable Back Exam: Normal Inspection, Full Range of Motion Extremities: Normal Inspection, Normal Range of Motion, Non-Tender, No Pedal Edema, Normal Capillary Refill Skin: Ecchymosis Neurological: No New Focal Deficit Psy/Mental Status: Alert, Normal Affect, Normal Mood - Patient Data Lab Results Last 24 hrs: Laboratory Results - last 24 hr 11/18/20 11/18/20 11/18/20 Range/Units 19:24 19:39 19:39 WBC 7.9 (5.0-10.0) 10^3/uL RBC 4.15 (4.00-5.50) 10^6/uL Hgb 12.8 (12.0-16.0) g/dL Hct 36.0 L (37.0-47.0) % MCV 86.7 (82.0-94.0) fL MCH 30.8 (27.0-32.0) pg MCHC 35.6 (33.0-38.0) g/dL RDW Coeff of Angie 13.6 (11.0-15.0) % Plt Count 344 (150-400) 10^3/uL Neut % (Auto) 83.5 (35-85) % Lymph % (Auto) 6.5 L (10-55) % [place] % (Auto) 9.9 (0-16) % Eos % (Auto) 0 (0-5) % Baso % (Auto) 0.1 (0-3) % Neut # (Auto) 6.58 (1.80-7.00) 10^3/uL Lymph # (Auto) 0.51 L (1.00-4.80) 10^3/uL [place] # (Auto) 0.78 (0.00-0.80) 10^3/uL Eos # (Auto) 0.00 (0.00-0.45) 10^3/uL Baso # (Auto) 0.01 10^3/uL PT (9.3-11.4) SEC INR (0.92-1.18) Sodium 124 L* (136-145) mEq/L Potassium 4.3 (3.5-5.0) mEq/L Chloride 88 L (98-106) mEq/L Carbon Dioxide 27 (21-32) mmol/L BUN 8 (7-18) mg/dL Creatinine 0.9 (0.6-1.0) mg/dL Est Cr Clr Drug Dosing 51.71 mL/min Estimated GFR (MDRD) > 60 (>=60) mL/min Glucose 173 H D (75-99) mg/dL Calcium 8.5 (8.4-10.1) mg/dL Magnesium (1.8-2.4) mg/dL Total Bilirubin 0.9 (0.0-1.0) mg/dL AST 45 H (15-37) U/L ALT 21 (12-78) U/L Alkaline Phosphatase 75 (46-116) U/L Creatine Kinase 964 H (21-215) U/L C-Reactive Protein 0.5 (0.2-0.8) mg/dL Total Protein 6.9 (6.4-8.2) g/dL Albumin 3.2 L (3.4-5.0) g/dL Urine Color Yellow (YELLOW) Urine Appearance Slightly cloudy (CLEAR) Urine pH 7.0 (4.5-8.0) Ur Specific [place] 1.025 H (1.003-1.020) Urine Protein 30 H (NEGATIVE) mg/dL Urine Glucose (UA) Negative (NEGATIVE) mg/dL Urine Ketones 15 H (NEGATIVE) mg/dL Urine Occult Blood Trace-intact H (NEGATIVE) Urine Nitrite Negative (NEGATIVE) Urine Bilirubin Negative (NEGATIVE) Urine Urobilinogen 0.2 (0.2-1.0) EU/dL Ur Leukocyte Esterase Small H (NEGATIVE) Urine RBC 5-10 H (0-5) /HPF Urine WBC 50-75 H (0-5) /HPF Ur Epithelial Cells Few H (NOT SEEN) /HPF Urine Bacteria Moderate H (NOT SEEN) /HPF Urinalysis Comment 11/19/20 11/19/20 11/19/20 Range/Units 07:56 07:56 07:56 WBC 6.2 (5.0-10.0) 10^3/uL RBC 3.94 L (4.00-5.50) 10^6/uL Hgb 11.9 L (12.0-16.0) g/dL Hct 34.5 L (37.0-47.0) % MCV 87.6 (82.0-94.0) fL MCH 30.2 (27.0-32.0) pg MCHC 34.5 (33.0-38.0) g/dL RDW Coeff of Angie 13.8 (11.0-15.0) % Plt Count 336 (150-400) 10^3/uL Neut % (Auto) 66.4 (35-85) % Lymph % (Auto) 16.2 (10-55) % [place] % (Auto) 16.5 H (0-16) % Eos % (Auto) 0.6 (0-5) % Baso % (Auto) 0.3 (0-3) % Neut # (Auto) 4.13 (1.80-7.00) 10^3/uL Lymph # (Auto) 1.01 (1.00-4.80) 10^3/uL [place] # (Auto) 1.03 H (0.00-0.80) 10^3/uL Eos # (Auto) 0.04 (0.00-0.45) 10^3/uL Baso # (Auto) 0.02 10^3/uL PT 21.1 H (9.3-11.4) SEC INR 2.03 H (0.92-1.18) Sodium (136-145) mEq/L Potassium (3.5-5.0) mEq/L Chloride (98-106) mEq/L Carbon Dioxide (21-32) mmol/L BUN (7-18) mg/dL Creatinine (0.6-1.0) mg/dL Est Cr Clr Drug Dosing mL/min Estimated GFR (MDRD) (>=60) mL/min Glucose (75-99) mg/dL Calcium (8.4-10.1) mg/dL Magnesium 1.6 L (1.8-2.4) mg/dL Total Bilirubin (0.0-1.0) mg/dL AST (15-37) U/L ALT (12-78) U/L Alkaline Phosphatase (46-116) U/L Creatine Kinase (21-215) U/L C-Reactive Protein (0.2-0.8) mg/dL Total Protein (6.4-8.2) g/dL Albumin (3.4-5.0) g/dL Urine Color (YELLOW) Urine Appearance (CLEAR) Urine pH (4.5-8.0) Ur Specific [place] (1.003-1.020) Urine Protein (NEGATIVE) mg/dL Urine Glucose (UA) (NEGATIVE) mg/dL Urine Ketones (NEGATIVE) mg/dL Urine Occult Blood (NEGATIVE) Urine Nitrite (NEGATIVE) Urine Bilirubin (NEGATIVE) Urine Urobilinogen (0.2-1.0) EU/dL Ur Leukocyte Esterase (NEGATIVE) Urine RBC (0-5) /HPF Urine WBC (0-5) /HPF Ur Epithelial Cells (NOT SEEN) /HPF Urine Bacteria (NOT SEEN) /HPF Urinalysis Comment 11/19/20 Range/Units 07:56 WBC (5.0-10.0) 10^3/uL RBC (4.00-5.50) 10^6/uL Hgb (12.0-16.0) g/dL Hct (37.0-47.0) % MCV (82.0-94.0) fL MCH (27.0-32.0) pg MCHC (33.0-38.0) g/dL RDW Coeff of Angie (11.0-15.0) % Plt Count (150-400) 10^3/uL Neut % (Auto) (35-85) % Lymph % (Auto) (10-55) % [place] % (Auto) (0-16) % Eos % (Auto) (0-5) % Baso % (Auto) (0-3) % Neut # (Auto) (1.80-7.00) 10^3/uL Lymph # (Auto) (1.00-4.80) 10^3/uL [place] # (Auto) (0.00-0.80) 10^3/uL Eos # (Auto) (0.00-0.45) 10^3/uL Baso # (Auto) 10^3/uL PT (9.3-11.4) SEC INR (0.92-1.18) Sodium 127 L (136-145) mEq/L Potassium 3.8 (3.5-5.0) mEq/L Chloride 92 L (98-106) mEq/L Carbon Dioxide 25 (21-32) mmol/L BUN 9 (7-18) mg/dL Creatinine 0.9 (0.6-1.0) mg/dL Est Cr Clr Drug Dosing 51.71 mL/min Estimated GFR (MDRD) > 60 (>=60) mL/min Glucose 108 H D (75-99) mg/dL Calcium 8.0 L (8.4-10.1) mg/dL Magnesium (1.8-2.4) mg/dL Total Bilirubin (0.0-1.0) mg/dL AST (15-37) U/L ALT (12-78) U/L Alkaline Phosphatase (46-116) U/L Creatine Kinase 743 H (21-215) U/L C-Reactive Protein (0.2-0.8) mg/dL Total Protein (6.4-8.2) g/dL Albumin (3.4-5.0) g/dL Urine Color (YELLOW) Urine Appearance (CLEAR) Urine pH (4.5-8.0) Ur Specific [place] (1.003-1.020) Urine Protein (NEGATIVE) mg/dL Urine Glucose (UA) (NEGATIVE) mg/dL Urine Ketones (NEGATIVE) mg/dL Urine Occult Blood (NEGATIVE) Urine Nitrite (NEGATIVE) Urine Bilirubin (NEGATIVE) Urine Urobilinogen (0.2-1.0) EU/dL Ur Leukocyte Esterase (NEGATIVE) Urine RBC (0-5) /HPF Urine WBC (0-5) /HPF Ur Epithelial Cells (NOT SEEN) /HPF Urine Bacteria (NOT SEEN) /HPF Urinalysis Comment Result Diagrams: 11/19/20 07:56 11/19/20 07:56 Sepsis Event Note - Evaluation Sepsis Screening Result: No Definite Risk - Focused Exam Vital Signs: Vital Signs Temp Pulse Pulse Resp BP BP Pulse Ox 11/19/20 07:53 99 F 90 18 143/80 H 96 11/19/20 04:00 97.6 F 93 18 139/73 96 11/19/20 02:08 98.0 F 127 H 20 162/91 H 95 11/19/20 00:22 95 146/73 H 11/19/20 00:00 97.8 F 92 16 146/73 H 95 - Problem List & Annotations (1) Rhabdomyolysis SNOMED Code(s): 143428894 Code(s): M62.82 - RHABDOMYOLYSIS Status: Acute Current Visit: No (2) Hyponatremia SNOMED Code(s): 64852999 Code(s): E87.1 - HYPO-OSMOLALITY AND HYPONATREMIA Status: Acute Current Visit: No (3) UTI (urinary tract infection) SNOMED Code(s): 65102857 Code(s): N39.0 - URINARY TRACT INFECTION, SITE NOT SPECIFIED Status: Acute Current Visit: Yes Qualifiers: Urinary tract infection type: acute cystitis Hematuria presence: without hematuria Qualified Code(s): N30.00 - Acute cystitis without hematuria (4) Hypertension SNOMED Code(s): 95475819 Code(s): I10 - ESSENTIAL (PRIMARY) HYPERTENSION Status: Acute Current Visit: Yes Qualifiers: Hypertension type: essential hypertension Qualified Code(s): I10 - Essential (primary) hypertension - Problem List Review Problem List Initiated/Reviewed/Updated: Yes - My Orders Last 24 Hours: My Active Orders 11/18/20 19:24 Hip Min 2V or 3V w Pelvis Rt [CR] Stat 11/18/20 20:22 Head wo Cont [CT] Stat 11/18/20 21:58 Resuscitation Status Routine 11/18/20 23:58 ALPRAZolam [Xanax] 0.25 mg PO Q6H PRN Acetaminophen [TylenoL] 650 mg PO Q4H PRN Enoxaparin [Lovenox] 30 mg SUBCUT Q24H Sodium Chloride 0.9% [Normal Saline] 1,000 ml IV ASDIRECTED calcium polycarbophiL [Fibercon] 1 tab PO DAILY PRN 11/18/20 23:58 Patient Status [ADT] Routine Cardiac Monitoring [RC] 0800,2000 Oxygen Therapy [RC] .PRN Pulse Oximetry [RC] .PRN Up With Assistance [RC] .PRN Vital Signs [RC] 0000,0400,0800,1200,1600,2000 PT Evaluation and Treatment [CONS] Routine 11/19/20 08:00 Calcium Citrate/Vitamin D3 [Calcium Citrate + Caplet] 1,000 mg PO TID Cholecalciferol (Vitamin D3) [Vitamin D3] DOSE mcg PO DAILY Fesoterodine Fumarate [Toviaz] 8 mg PO DAILY Losartan [Cozaar] 100 mg PO DAILY Metoprolol Succinate [Toprol XL] 50 mg PO DAILY Omeprazole [Omeprazole] 20 mg PO DAILY Oxybutynin 5 mg PO DAILY PARoxetine [Paxil] 20 mg PO DAILY Pantoprazole [Take Home: Pantoprazole 40 MG, 1 Tab Pack] DOSE packet PO DAILY Warfarin [Coumadin] 5 mg PO DAILY amLODIPine Besylate [Amlodipine Besylate] 5 mg PO DAILY buPROPion [Wellbutrin XL] 150 mg PO DAILY 11/19/20 08:36 CULTURE URINE [RM] Routine 11/19/20 09:00 Magnesium Sulfate/Water [Magnesium Sulfate in Water 2 GM/50 ML] 2 gm in 50 ml IV ONETIME cefTRIAXone [Rocephin] 1 gm IVPUSH Q24H 11/20/20 07:00 BASIC METABOLIC PANEL,BMP [CHEM] DAILY CBC WITH AUTO DIFF [HEME] DAILY CREATINE KINASE,CK [CHEM] DAILY INR,PT,PROTHROMBIN TIME [COAG] DAILY - Assessment Assessment:: Rhabdomyolysis UTI Hyponatremia Hypertension Fall at home Generalized Weakness - Plan Plan:: No complaints this morning other than feeling achy. Denies any significant pain. Denies any urinary symptoms. Na improved from 124 to 127. Chloride improved from 88 to 92. Creatinine kinase improved from 964 to 743. Magnesium low this morning at 1.6. Will continue with IVF. Replace magnesium with 2 g mag sulfate. Continue with IV antibiotics for UTI. Consult PT for strengthening. Case management for discharge planning. Patient may need Life Alert on discharge. Anticipate discharge home 1-2 days, pending lab improvement.
[2020-11-19] MEDS: Sodium Chloride 0.9% 1,000 ML IV SCH (11:22)
[2020-11-19] MEDS: Acetaminophen 325 MG Tab PO PRN (11:22)
[2020-11-19] MEDS: FESOTERODINE FUMARATE 8 MG PO SCH (11:48)
[2020-11-19] MEDS: METOPROLOL SUCCINATE 25 MG PO SCH (11:49)
[2020-11-19] MEDS: PARoxetine 20 MG Tab **PTOM PO SCH (11:49)
[2020-11-19] MEDS: Losartan 100 MG Tab **PTOM PO SCH (11:49)
[2020-11-19] MEDS ORDERED: Psyllium Husk Powder Sugar Free 5.85 GM Packet PO PRN (11:53)
[2020-11-19] MEDS: cefTRIAXone 1 GM Vial IVPUSH SCH (12:01)
[2020-11-19] MEDS: Calcium Carbonate/Vitamin D3 1250 MG-200 Unit Tab PO SCH ×2 (12:01→17:40)
[2020-11-19] MEDS: Cholecalciferol (Vitamin D3) 25 MCG Tab PO SCH (12:01)
[2020-11-19] MEDS: buPROPion 150 MG Tab.ER PO SCH (17:40)
[2020-11-19] MEDS: amLODIPine 10 MG Tab PO SCH (17:41)
[2020-11-19] MEDS ORDERED: Warfarin 5 MG Tab PO SCH (20:00)
[2020-11-19] MEDS ORDERED: OMEPRAZOLE 20 MG PO SCH (20:00)
[2020-11-19] MEDS: Enoxaparin 30 MG/0.3 ML Syringe SUBCUT SCH (21:09)
[2020-11-20] MEDS: Sodium Chloride 0.9% 1,000 ML IV SCH ×2 (02:45→16:16)
[2020-11-20 07:53] LABS: CHLORIDE,CL 96 mEq/L (98-106); SODIUM,NA 128 mEq/L (136-145)
[2020-11-20] MEDS: Acetaminophen 325 MG Tab PO PRN ×2 (08:13→19:45)
[2020-11-20] MEDS: Losartan 100 MG Tab **PTOM PO SCH (08:15)
[2020-11-20] MEDS: METOPROLOL SUCCINATE 25 MG PO SCH (08:16)
[2020-11-20] MEDS: PARoxetine 20 MG Tab **PTOM PO SCH (08:16)
[2020-11-20] MEDS: FESOTERODINE FUMARATE 8 MG PO SCH (08:17)
[2020-11-20] MEDS: Cholecalciferol (Vitamin D3) 25 MCG Tab PO SCH (08:22)
[2020-11-20] MEDS: buPROPion 150 MG Tab.ER PO SCH (08:22)
[2020-11-20] MEDS: amLODIPine 10 MG Tab PO SCH (08:22)
[2020-11-20] MEDS: Calcium Carbonate/Vitamin D3 1250 MG-200 Unit Tab PO SCH ×3 (08:22→18:47)
--- NOTE | 2020-11-20 08:42 | PCM.PN ---
- General Info Date of Service: 11/20/20 Admission Dx/Problem (Free Text): Rhabdomyolysis UTI Fall at home Hyponatremia Generalized Weakness Hypertension Subjective Update: Romana is resting comfortably in bed. States very sore with movement this am. She has the most discomfort in her knees and her right breast. Did have difficulty with first visit with PT yesterday, only able to go a few feet. States afternoon walk was better. Does not yet feel steady or comfortable enough yet to go home. Temp 100.8 this am, sinus tachycardia in the 120s to 130s. Blood pressure is stable. Appetite has been good. Functional Status: Reports: Pain Controlled, Tolerating Diet, Ambulating (short distances) - Review of Systems General: Reports: Fever, Weakness, Fatigue, Malaise HEENT: Denies: Headaches, Sinus Congestion, Sore Throat Pulmonary: Denies: Shortness of Breath, Cough Cardiovascular: Denies: Chest Pain, Edema, Lightheadedness Gastrointestinal: Denies: Abdominal Pain, Nausea, Vomiting Genitourinary: Reports: Incontinence Musculoskeletal: Reports: Leg Pain, Joint Pain, Other (breast discomfort) Skin: Reports: Bruising Neurological: Reports: Weakness - Patient Data Vitals - Most Recent: Last Vital Signs Temp 99.1 F 11/20/20 04:00 Pulse 97 11/20/20 04:00 Resp 20 11/20/20 04:00 BP 154/84 H 11/20/20 08:22 Pulse Ox 96 11/19/20 23:42 Weight - Most Recent: 162 lb 3.2 oz I&O - Last 24 Hours: Intake & Output 11/19/20 11/20/20 11/20/20 22:59 06:59 14:59 Intake Total 1000 Balance 1000 Lab Results Last 24 Hours: Laboratory Results - last 24 hr 11/18/20 11/19/20 11/19/20 Range/Units 19:24 07:56 07:56 WBC (5.0-10.0) 10^3/uL RBC (4.00-5.50) 10^6/uL Hgb (12.0-16.0) g/dL Hct (37.0-47.0) % MCV (82.0-94.0) fL MCH (27.0-32.0) pg MCHC (33.0-38.0) g/dL RDW Coeff of Angie (11.0-15.0) % Plt Count (150-400) 10^3/uL Neut % (Auto) (35-85) % Lymph % (Auto) (10-55) % Jones % (Auto) (0-16) % Eos % (Auto) (0-5) % Baso % (Auto) (0-3) % Neut # (Auto) (1.80-7.00) 10^3/uL Lymph # (Auto) (1.00-4.80) 10^3/uL Jones # (Auto) (0.00-0.80) 10^3/uL Eos # (Auto) (0.00-0.45) 10^3/uL Baso # (Auto) 10^3/uL PT (9.7-12.3) SEC INR (0.92-1.18) Sodium 127 L (136-145) mEq/L Potassium 3.8 (3.5-5.0) mEq/L Chloride 92 L (98-106) mEq/L Carbon Dioxide 25 (21-32) mmol/L BUN 9 (7-18) mg/dL Creatinine 0.9 (0.6-1.0) mg/dL Est Cr Clr Drug Dosing 51.71 mL/min Estimated GFR (MDRD) > 60 (>=60) mL/min Glucose 108 H D (75-99) mg/dL Calcium 8.0 L (8.4-10.1) mg/dL Magnesium 1.6 L (1.8-2.4) mg/dL Creatine Kinase 743 H (21-215) U/L Urinalysis Comment 11/20/20 11/20/20 11/20/20 Range/Units 07:00 07:00 07:00 WBC 7.9 (5.0-10.0) 10^3/uL RBC 3.59 L (4.00-5.50) 10^6/uL Hgb 10.8 L (12.0-16.0) g/dL Hct 31.4 L (37.0-47.0) % MCV 87.5 (82.0-94.0) fL MCH 30.1 (27.0-32.0) pg MCHC 34.4 (33.0-38.0) g/dL RDW Coeff of Angie 13.7 (11.0-15.0) % Plt Count 280 (150-400) 10^3/uL Neut % (Auto) 74.9 (35-85) % Lymph % (Auto) 9.6 L (10-55) % Jones % (Auto) 14.9 (0-16) % Eos % (Auto) 0.3 (0-5) % Baso % (Auto) 0.3 (0-3) % Neut # (Auto) 5.89 (1.80-7.00) 10^3/uL Lymph # (Auto) 0.75 L (1.00-4.80) 10^3/uL Jones # (Auto) 1.17 H (0.00-0.80) 10^3/uL Eos # (Auto) 0.02 (0.00-0.45) 10^3/uL Baso # (Auto) 0.02 10^3/uL PT 20.4 H (9.7-12.3) SEC INR 1.95 H (0.92-1.18) Sodium 128 L (136-145) mEq/L Potassium 3.4 L (3.5-5.0) mEq/L Chloride 96 L (98-106) mEq/L Carbon Dioxide 24 (21-32) mmol/L BUN 7 (7-18) mg/dL Creatinine 0.6 (0.6-1.0) mg/dL Est Cr Clr Drug Dosing 77.57 mL/min Estimated GFR (MDRD) > 60 (>=60) mL/min Glucose 113 H (75-99) mg/dL Calcium 7.8 L (8.4-10.1) mg/dL Magnesium (1.8-2.4) mg/dL Creatine Kinase 702 H (21-215) U/L Urinalysis Comment Med Orders - Current: Current Medications Acetaminophen (Acetaminophen 325 Mg Tab) 650 mg PO Q4H PRN PRN Reason: Pain (Mild 1-3)/fever Last Admin: 11/20/20 08:13 Dose: 650 mg Documented by: Alprazolam (Alprazolam 0.25 Mg Tab) 0.25 mg PO Q6H PRN PRN Reason: Anxiety Bupropion HCl (Bupropion 150 Mg Tab.Er) 150 mg PO DAILY [facility] Last Admin: 11/20/20 08:22 Dose: 150 mg Documented by: Calcium Carbonate (Calcium Carbonate/Vitamin D3 1250 Mg-200 Unit Tab) 1 tab PO TIDMEALS [facility] Last Admin: 11/20/20 08:22 Dose: 1 tab Documented by: Ceftriaxone Sodium (Ceftriaxone 1 Gm Vial) 1 gm IVPUSH Q24H [facility] Last Admin: 11/19/20 12:01 Dose: 1 gm Documented by: Cholecalciferol (Cholecalciferol (Vitamin D3) 25 Mcg Tab) 25 mcg PO DAILY [facility] Last Admin: 11/20/20 08:22 Dose: 25 mcg Documented by: Enoxaparin Sodium (Enoxaparin 30 Mg/0.3 Ml Syringe) 30 mg SUBCUT Q24H [facility] Last Admin: 11/19/20 00:23 Dose: 30 mg Documented by: Sodium Chloride (Normal Saline) 1,000 mls @ 75 mls/hr IV ASDIRECTED [facility] Last Admin: 11/20/20 02:45 Dose: 75 mls/hr Documented by: Losartan Potassium (Losartan 100 Mg Tab Ptom) 100 mg PO DAILY [facility] Last Admin: 11/20/20 08:15 Dose: 100 mg Documented by: Non-Formulary Medication (Amlodipine Besylate [Amlodipine Besylate]) 5 mg PO DAILY [facility] Last Admin: 11/20/20 08:22 Dose: 5 mg Documented by: Non-Formulary Medication (Calcium Polycarbophil [Fibercon]) 1 tab PO DAILY PRN PRN Reason: Other Fesoterodine Fumarate [Toviaz] 8 Mg Ptom 0 mg PO DAILY [facility] Last Admin: 11/20/20 08:17 Dose: 8 mg Documented by: Metoprolol Succinate [Toprol Xl] 25mg Ptom 0 mg PO DAILY [facility] Last Admin: 11/20/20 08:16 Dose: 50 mg Documented by: Non-Formulary Medication (Omeprazole [Omeprazole]) 20 mg PO DAILY [facility] Last Admin: 11/19/20 19:50 Dose: 20 mg Documented by: Oxybutynin Chloride (Oxybutynin 5 Mg Tab Ptom) 5 mg PO BEDTIME [facility] Last Admin: 11/19/20 19:51 Dose: 5 mg Documented by: Paroxetine HCl (Paroxetine 20 Mg Tab Ptom) 20 mg PO DAILY [facility] Last Admin: 11/20/20 08:16 Dose: 20 mg Documented by: Warfarin Sodium (Warfarin 5 Mg Tab) 5 mg PO DAILY [facility] Discontinued Medications Ceftriaxone Sodium (Ceftriaxone 1 Gm Vial) 1 gm IVPUSH Q24H [facility] Last Admin: 11/19/20 11:10 Dose: Not Given Documented by: Sodium Chloride (Normal Saline) 1,000 mls @ 500 mls/hr IV .BOLUS ONE Stop: 11/18/20 22:07 Last Admin: 11/18/20 20:32 Dose: 500 mls/hr Documented by: Sodium Chloride (Normal Saline) 1,000 mls @ 100 mls/hr IV ASDIRECTED [facility] Stop: 11/19/20 09:57 Last Admin: 11/19/20 00:26 Dose: 100 mls/hr Documented by: Magnesium Sulfate (Magnesium Sulfate In Water 2 Gm/50 Ml) 2 gm in 50 mls @ 25 mls/hr IV ONETIME ONE Stop: 11/19/20 10:59 Last Admin: 11/19/20 11:18 Dose: 25 mls/hr Documented by: Metoprolol Tartrate (Metoprolol Tartrate 5 Mg/5 Ml Sdv) 5 mg IVPUSH ONETIME ONE Stop: 11/18/20 23:59 Last Admin: 11/19/20 00:22 Dose: Not Given Documented by: - Exam General: Alert, Oriented HEENT: Mucous Membr. Moist/[place] Neck: Supple Lungs: Clear to Auscultation, Normal Respiratory Effort Cardiovascular: Tachycardia, Murmurs GI/Abdominal Exam: Normal Bowel Sounds, Soft, Non-Tender Extremities: Normal Inspection, No Pedal Edema, Other (bruising noted to bilateral knees and lower legs) Skin: Warm, Dry, Ecchymosis Neurological: No New Focal Deficit - Patient Data Lab Results Last 24 hrs: Laboratory Results - last 24 hr 11/18/20 11/19/20 11/19/20 Range/Units 19:24 07:56 07:56 WBC (5.0-10.0) 10^3/uL RBC (4.00-5.50) 10^6/uL Hgb (12.0-16.0) g/dL Hct (37.0-47.0) % MCV (82.0-94.0) fL MCH (27.0-32.0) pg MCHC (33.0-38.0) g/dL RDW Coeff of Angie (11.0-15.0) % Plt Count (150-400) 10^3/uL Neut % (Auto) (35-85) % Lymph % (Auto) (10-55) % Jones % (Auto) (0-16) % Eos % (Auto) (0-5) % Baso % (Auto) (0-3) % Neut # (Auto) (1.80-7.00) 10^3/uL Lymph # (Auto) (1.00-4.80) 10^3/uL Jones # (Auto) (0.00-0.80) 10^3/uL Eos # (Auto) (0.00-0.45) 10^3/uL Baso # (Auto) 10^3/uL PT (9.7-12.3) SEC INR (0.92-1.18) Sodium 127 L (136-145) mEq/L Potassium 3.8 (3.5-5.0) mEq/L Chloride 92 L (98-106) mEq/L Carbon Dioxide 25 (21-32) mmol/L BUN 9 (7-18) mg/dL Creatinine 0.9 (0.6-1.0) mg/dL Est Cr Clr Drug Dosing 51.71 mL/min Estimated GFR (MDRD) > 60 (>=60) mL/min Glucose 108 H D (75-99) mg/dL Calcium 8.0 L (8.4-10.1) mg/dL Magnesium 1.6 L (1.8-2.4) mg/dL Creatine Kinase 743 H (21-215) U/L Urinalysis Comment 11/20/20 11/20/20 11/20/20 Range/Units 07:00 07:00 07:00 WBC 7.9 (5.0-10.0) 10^3/uL RBC 3.59 L (4.00-5.50) 10^6/uL Hgb 10.8 L (12.0-16.0) g/dL Hct 31.4 L (37.0-47.0) % MCV 87.5 (82.0-94.0) fL MCH 30.1 (27.0-32.0) pg MCHC 34.4 (33.0-38.0) g/dL RDW Coeff of Angie 13.7 (11.0-15.0) % Plt Count 280 (150-400) 10^3/uL Neut % (Auto) 74.9 (35-85) % Lymph % (Auto) 9.6 L (10-55) % Jones % (Auto) 14.9 (0-16) % Eos % (Auto) 0.3 (0-5) % Baso % (Auto) 0.3 (0-3) % Neut # (Auto) 5.89 (1.80-7.00) 10^3/uL Lymph # (Auto) 0.75 L (1.00-4.80) 10^3/uL Jones # (Auto) 1.17 H (0.00-0.80) 10^3/uL Eos # (Auto) 0.02 (0.00-0.45) 10^3/uL Baso # (Auto) 0.02 10^3/uL PT 20.4 H (9.7-12.3) SEC INR 1.95 H (0.92-1.18) Sodium 128 L (136-145) mEq/L Potassium 3.4 L (3.5-5.0) mEq/L Chloride 96 L (98-106) mEq/L Carbon Dioxide 24 (21-32) mmol/L BUN 7 (7-18) mg/dL Creatinine 0.6 (0.6-1.0) mg/dL Est Cr Clr Drug Dosing 77.57 mL/min Estimated GFR (MDRD) > 60 (>=60) mL/min Glucose 113 H (75-99) mg/dL Calcium 7.8 L (8.4-10.1) mg/dL Magnesium (1.8-2.4) mg/dL Creatine Kinase 702 H (21-215) U/L Urinalysis Comment Result Diagrams: 11/20/20 07:00 11/20/20 07:00 Sepsis Event Note - Evaluation Sepsis Screening Result: No Definite Risk - Focused Exam Vital Signs: Vital Signs Temp Pulse Resp BP BP Pulse Ox 11/20/20 08:22 154/84 H 11/20/20 08:15 154/84 H 11/20/20 04:00 99.1 F 97 20 154/84 H 11/19/20 23:42 98.3 F 95 20 149/80 H 96 - Problem List & Annotations (1) Hyponatremia SNOMED Code(s): 62706148 Code(s): E87.1 - HYPO-OSMOLALITY AND HYPONATREMIA Status: Acute Priority: High Current Visit: Yes (2) Rhabdomyolysis SNOMED Code(s): 837970115 Code(s): M62.82 - RHABDOMYOLYSIS Status: Acute Priority: High Current Visit: Yes Qualifiers: Rhabdomyolysis type: traumatic Encounter type: initial encounter Qualified Code(s): T79.6XXA - Traumatic ischemia of muscle, initial encounter - Problem List Review Problem List Initiated/Reviewed/Updated: Yes - My Orders Last 24 Hours: My Active Orders 11/20/20 08:34 Patient Status [ADT] Routine - Assessment Assessment:: Rhabdomyolysis UTI Hyponatremia Hypertension Fall at home Generalized Weakness - Plan Plan:: No complaints this morning other than feeling achy. Denies any significant pain. Denies any urinary symptoms. Na improved from 124 to 127. Chloride improved from 88 to 92. Creatinine kinase improved from 964 to 743. Magnesium low this morning at 1.6. Will continue with IVF. Replace magnesium with 2 g mag sulfate. Continue with IV antibiotics for UTI. Consult PT for strengthening. Case management for discharge planning. Patient may need Life Alert on discharge. Anticipate discharge home 1-2 days, pending lab improvement. 11-20-2020 Patient febrile this am with sinus tachycardia. More sore today. Has increased discomfort with movement today. Sodium minimally improved to 12. CK minimally improved at 702. Potassium slightly low at 3.4. Creatinine is stable. Will continue with IV fluids. Continue PT. Does agree that she will need Life Alert for home safety. Transferred to acute status. Possibly discharge in next 1-2 days.
[2020-11-20] MEDS ORDERED: Warfarin 5 MG Tab PO SCH (10:33)
[2020-11-20] MEDS: cefTRIAXone 1 GM Vial IVPUSH SCH (12:25)
[2020-11-20] MEDS: Enoxaparin 30 MG/0.3 ML Syringe SUBCUT SCH (19:40)
[2020-11-20] MEDS: Oxybutynin 5 MG Tab PO SCH (19:41)
[2020-11-20] MEDS: Warfarin 5 MG Tab PO SCH (19:41)
[2020-11-20] MEDS: Pantoprazole 40 MG Tab.CR PO SCH (19:42)
[2020-11-21] MEDS: Sodium Chloride 0.9% 1,000 ML IV SCH (05:44)
[2020-11-21 07:44] LABS: CHLORIDE,CL 101 mEq/L (98-106); SODIUM,NA 134 mEq/L (136-145)
[2020-11-21] MEDS: PARoxetine 20 MG Tab PO SCH (07:53)
[2020-11-21] MEDS: Cholecalciferol (Vitamin D3) 25 MCG Tab PO SCH (07:53)
[2020-11-21] MEDS: amLODIPine 10 MG Tab PO SCH (07:53)
[2020-11-21] MEDS: Losartan 100 MG Tab PO SCH (07:54)
[2020-11-21] MEDS: buPROPion 150 MG Tab.ER PO SCH (07:54)
[2020-11-21] MEDS: FESOTERODINE FUMARATE 8 MG PO SCH (07:55)
[2020-11-21] MEDS: Calcium Carbonate/Vitamin D3 1250 MG-200 Unit Tab PO SCH ×3 (07:55→17:25)
[2020-11-21] MEDS ORDERED: Metoprolol Succinate 25 MG Tab.ER PO SCH (08:00)
--- NOTE | 2020-11-21 09:41 | PCM.PN ---
- General Info Date of Service: 11/21/20 Admission Dx/Problem (Free Text): Rhabdomyolysis UTI Fall at home Hyponatremia Generalized Weakness Hypertension Subjective Update: Romana reports she is feeling less achy this morning. Does feel she is ambulating better and feeling less weak. Is still anxious about returning home as she is fearful of falling again. She does report she had some diarrhea yesterday. Has not had any diarrhea throughout the night or this morning. She otherwise denies any complaints. Has been having some tachycardia on cardiac monitoring. Patient is asymptomatic and does not realize when her HR increases. Functional Status: Reports: Pain Controlled, Tolerating Diet, Ambulating. Denies: New Symptoms - Review of Systems General: Reports: No Symptoms, Weakness HEENT: Reports: No Symptoms Pulmonary: Reports: No Symptoms Cardiovascular: Reports: Dyspnea on Exertion. Denies: Chest Pain, Edema Gastrointestinal: Reports: Diarrhea Genitourinary: Reports: No Symptoms Musculoskeletal: Reports: Other (Generalized Achy) Skin: Reports: Bruising (improving) Neurological: Reports: Weakness Psychiatric: Reports: No Symptoms - Patient Data Vitals - Most Recent: Last Vital Signs Temp 97.4 F 11/21/20 08:00 Pulse 100 11/21/20 07:54 Resp 18 11/21/20 08:00 BP 145/88 H 11/21/20 08:00 Pulse Ox 96 11/21/20 08:00 Weight - Most Recent: 162 lb 3.2 oz I&O - Last 24 Hours: Intake & Output 11/20/20 11/21/20 11/21/20 22:59 06:59 14:59 Intake Total 1000 1000 Balance 1000 1000 Lab Results Last 24 Hours: Laboratory Results - last 24 hr 11/21/20 11/21/20 Range/Units 07:00 07:00 WBC 5.5 (5.0-10.0) 10^3/uL RBC 3.34 L (4.00-5.50) 10^6/uL Hgb 10.2 L (12.0-16.0) g/dL Hct 29.7 L (37.0-47.0) % MCV 88.9 (82.0-94.0) fL MCH 30.5 (27.0-32.0) pg MCHC 34.3 (33.0-38.0) g/dL RDW Coeff of Angie 14.0 (11.0-15.0) % Plt Count 278 (150-400) 10^3/uL Neut % (Auto) 70.0 (35-85) % Lymph % (Auto) 11.1 (10-55) % [place] % (Auto) 15.6 (0-16) % Eos % (Auto) 3.1 (0-5) % Baso % (Auto) 0.2 (0-3) % Neut # (Auto) 3.85 (1.80-7.00) 10^3/uL Lymph # (Auto) 0.61 L (1.00-4.80) 10^3/uL [place] # (Auto) 0.86 H (0.00-0.80) 10^3/uL Eos # (Auto) 0.17 (0.00-0.45) 10^3/uL Baso # (Auto) 0.01 10^3/uL Sodium 134 L (136-145) mEq/L Potassium 3.4 L (3.5-5.0) mEq/L Chloride 101 (98-106) mEq/L Carbon Dioxide 26 (21-32) mmol/L BUN 5 L (7-18) mg/dL Creatinine 0.6 (0.6-1.0) mg/dL Est Cr Clr Drug Dosing 77.57 mL/min Estimated GFR (MDRD) > 60 (>=60) mL/min Glucose 97 (75-99) mg/dL Calcium 7.8 L (8.4-10.1) mg/dL Magnesium 1.8 (1.8-2.4) mg/dL Total Bilirubin 0.6 (0.0-1.0) mg/dL AST 32 (15-37) U/L ALT 18 (12-78) U/L Alkaline Phosphatase 50 (46-116) U/L Creatine Kinase 384 H (21-215) U/L C-Reactive Protein 5.7 H (0.2-0.8) mg/dL Total Protein 5.6 L (6.4-8.2) g/dL Albumin 2.4 L (3.4-5.0) g/dL Jaspal Results Last 24 Hours: Microbiology 11/19/20 08:36 Urine Culture - Final Urine, Clean Catch Escherichia Coli Med Orders - Current: Current Medications Acetaminophen (Acetaminophen 325 Mg Tab) 650 mg PO Q4H PRN PRN Reason: Pain (Mild 1-3)/fever Last Admin: 11/20/20 19:45 Dose: 650 mg Documented by: Alprazolam (Alprazolam 0.25 Mg Tab) 0.25 mg PO Q6H PRN PRN Reason: Anxiety Amlodipine Besylate (Amlodipine 10 Mg Tab) 5 mg PO DAILY [facility] Last Admin: 11/21/20 07:53 Dose: 5 mg Documented by: Bupropion HCl (Bupropion 150 Mg Tab.Er) 150 mg PO DAILY [facility] Last Admin: 11/21/20 07:54 Dose: 150 mg Documented by: Calcium Carbonate (Calcium Carbonate/Vitamin D3 1250 Mg-200 Unit Tab) 1 tab PO TIDMEALS [facility] Last Admin: 11/21/20 07:55 Dose: 1 tab Documented by: Ceftriaxone Sodium (Ceftriaxone 1 Gm Vial) 1 gm IVPUSH Q24H [facility] Last Admin: 11/20/20 12:25 Dose: 1 gm Documented by: Cholecalciferol (Cholecalciferol (Vitamin D3) 25 Mcg Tab) 25 mcg PO DAILY [facility] Last Admin: 11/21/20 07:53 Dose: 25 mcg Documented by: Enoxaparin Sodium (Enoxaparin 30 Mg/0.3 Ml Syringe) 30 mg SUBCUT Q24H [facility] Last Admin: 11/19/20 00:23 Dose: 30 mg Documented by: Sodium Chloride (Normal Saline) 1,000 mls @ 75 mls/hr IV ASDIRECTED [facility] Last Admin: 11/21/20 05:44 Dose: 75 mls/hr Documented by: Losartan Potassium (Losartan 100 Mg Tab Ptom) 100 mg PO DAILY [facility] Last Admin: 11/20/20 08:15 Dose: 100 mg Documented by: Fesoterodine Fumarate [Toviaz] 8 Mg Ptom 0 mg PO DAILY [facility] Last Admin: 11/21/20 07:55 Dose: 8 mg Documented by: Metoprolol Succinate [Toprol Xl] 25mg Ptom 0 mg PO DAILY [facility] Last Admin: 11/20/20 08:16 Dose: 50 mg Documented by: Omeprazole [ Omeprazole] 20 Mg Cap Ptom 0 mg PO BEDTIME [facility] Last Admin: 11/19/20 19:50 Dose: 20 mg Documented by: Oxybutynin Chloride (Oxybutynin 5 Mg Tab Ptom) 5 mg PO BEDTIME [facility] Last Admin: 11/19/20 19:51 Dose: 5 mg Documented by: Paroxetine HCl (Paroxetine 20 Mg Tab Ptom) 20 mg PO DAILY [facility] Last Admin: 11/20/20 08:16 Dose: 20 mg Documented by: Psyllium Husk (Psyllium Husk Powder Sugar Free 5.85 Gm Packet) 1 pkt PO DAILY PRN PRN Reason: Constipation Warfarin Sodium (Warfarin 5 Mg Tab Ptom) 5 mg PO [email or web address] [facility] Last Admin: 11/20/20 19:41 Dose: 5 mg Documented by: Warfarin Sodium (Warfarin 5 Mg Tab Ptom) 2.5 mg PO [email or web address] [facility] Last Admin: 11/19/20 19:50 Dose: 2.5 mg Documented by: Discontinued Medications Ceftriaxone Sodium (Ceftriaxone 1 Gm Vial) 1 gm IVPUSH Q24H [facility] Last Admin: 11/19/20 11:10 Dose: Not Given Documented by: Sodium Chloride (Normal Saline) 1,000 mls @ 500 mls/hr IV .BOLUS ONE Stop: 11/18/20 22:07 Last Admin: 11/18/20 20:32 Dose: 500 mls/hr Documented by: Sodium Chloride (Normal Saline) 1,000 mls @ 100 mls/hr IV ASDIRECTED [facility] Stop: 11/19/20 09:57 Last Admin: 11/19/20 00:26 Dose: 100 mls/hr Documented by: Magnesium Sulfate (Magnesium Sulfate In Water 2 Gm/50 Ml) 2 gm in 50 mls @ 25 mls/hr IV ONETIME ONE Stop: 11/19/20 10:59 Last Admin: 11/19/20 11:18 Dose: 25 mls/hr Documented by: Metoprolol Tartrate (Metoprolol Tartrate 5 Mg/5 Ml Sdv) 5 mg IVPUSH ONETIME ONE Stop: 11/18/20 23:59 Last Admin: 11/19/20 00:22 Dose: Not Given Documented by: - Exam Quality Assessment: DVT Prophylaxis General: Alert, Oriented, No Acute Distress Neck: Supple Lungs: Clear to Auscultation, Normal Respiratory Effort Cardiovascular: Regular Rhythm, Tachycardia GI/Abdominal Exam: Normal Bowel Sounds, Soft, Non-Tender, No Organomegaly, No Distention, No Abnormal Bruit, No Mass, Pelvis Stable Back Exam: Normal Inspection, Full Range of Motion. No: CVA Tenderness (L), CVA Tenderness (R) Extremities: Normal Inspection, Normal Range of Motion, Non-Tender, No Pedal Edema, Normal Capillary Refill Skin: Ecchymosis Neurological: No New Focal Deficit Psy/Mental Status: Alert, Normal Affect, Normal Mood - Patient Data Lab Results Last 24 hrs: Laboratory Results - last 24 hr 11/21/20 11/21/20 Range/Units 07:00 07:00 WBC 5.5 (5.0-10.0) 10^3/uL RBC 3.34 L (4.00-5.50) 10^6/uL Hgb 10.2 L (12.0-16.0) g/dL Hct 29.7 L (37.0-47.0) % MCV 88.9 (82.0-94.0) fL MCH 30.5 (27.0-32.0) pg MCHC 34.3 (33.0-38.0) g/dL RDW Coeff of Angie 14.0 (11.0-15.0) % Plt Count 278 (150-400) 10^3/uL Neut % (Auto) 70.0 (35-85) % Lymph % (Auto) 11.1 (10-55) % [place] % (Auto) 15.6 (0-16) % Eos % (Auto) 3.1 (0-5) % Baso % (Auto) 0.2 (0-3) % Neut # (Auto) 3.85 (1.80-7.00) 10^3/uL Lymph # (Auto) 0.61 L (1.00-4.80) 10^3/uL [place] # (Auto) 0.86 H (0.00-0.80) 10^3/uL Eos # (Auto) 0.17 (0.00-0.45) 10^3/uL Baso # (Auto) 0.01 10^3/uL Sodium 134 L (136-145) mEq/L Potassium 3.4 L (3.5-5.0) mEq/L Chloride 101 (98-106) mEq/L Carbon Dioxide 26 (21-32) mmol/L BUN 5 L (7-18) mg/dL Creatinine 0.6 (0.6-1.0) mg/dL Est Cr Clr Drug Dosing 77.57 mL/min Estimated GFR (MDRD) > 60 (>=60) mL/min Glucose 97 (75-99) mg/dL Calcium 7.8 L (8.4-10.1) mg/dL Magnesium 1.8 (1.8-2.4) mg/dL Total Bilirubin 0.6 (0.0-1.0) mg/dL AST 32 (15-37) U/L ALT 18 (12-78) U/L Alkaline Phosphatase 50 (46-116) U/L Creatine Kinase 384 H (21-215) U/L C-Reactive Protein 5.7 H (0.2-0.8) mg/dL Total Protein 5.6 L (6.4-8.2) g/dL Albumin 2.4 L (3.4-5.0) g/dL Result Diagrams: 11/21/20 07:00 11/21/20 07:00 Jaspal Results Last 24 hrs: Microbiology 11/19/20 08:36 Urine Culture - Final Urine, Clean Catch Escherichia Coli Sepsis Event Note - Evaluation Sepsis Screening Result: No Definite Risk - Focused Exam Vital Signs: Vital Signs Temp Pulse Pulse Resp BP BP Pulse Ox 11/21/20 08:00 97.4 F 18 145/88 H 96 11/21/20 07:54 100 145/88 H 11/21/20 07:53 145/88 H 11/21/20 04:00 96.4 F L 87 20 147/75 H 93 L 11/20/20 23:25 97.0 F 84 20 146/73 H 94 L - Problem List & Annotations (1) Rhabdomyolysis SNOMED Code(s): 214358440 Code(s): M62.82 - RHABDOMYOLYSIS Status: Acute Priority: High Current Visit: Yes Qualifiers: Rhabdomyolysis type: traumatic Encounter type: initial encounter Qualified Code(s): T79.6XXA - Traumatic ischemia of muscle, initial encounter (2) Hyponatremia SNOMED Code(s): 28435214 Code(s): E87.1 - HYPO-OSMOLALITY AND HYPONATREMIA Status: Acute Priority: High Current Visit: Yes (3) UTI (urinary tract infection) SNOMED Code(s): 16000604 Code(s): N39.0 - URINARY TRACT INFECTION, SITE NOT SPECIFIED Status: Acute Current Visit: Yes Qualifiers: Urinary tract infection type: acute cystitis Hematuria presence: without hematuria Qualified Code(s): N30.00 - Acute cystitis without hematuria (4) Hypertension SNOMED Code(s): 11287109 Code(s): I10 - ESSENTIAL (PRIMARY) HYPERTENSION Status: Acute Current Visit: Yes Qualifiers: Hypertension type: essential hypertension Qualified Code(s): I10 - Essential (primary) hypertension - Problem List Review Problem List Initiated/Reviewed/Updated: Yes - My Orders Last 24 Hours: My Active Orders 11/20/20 10:20 Losartan [Cozaar] 100 mg PO DAILY 11/20/20 10:24 PARoxetine [Paxil] 20 mg PO DAILY 11/20/20 10:28 Oxybutynin 5 mg PO BEDTIME 11/20/20 10:33 Warfarin [Coumadin] 2.5 mg PO [id number]@199911/20/20 20:00 Pantoprazole [ProTONIX] 40 mg PO BEDTIME Warfarin [Coumadin] 5 mg PO [id number]@199911/21/20 09:28 Nitrofurantoin [place]/Macrocryst [Macrobid] 100 mg PO BIDMEALS 11/21/20 09:30 Metoprolol Succinate [Toprol XL] 100 mg PO DAILY 11/21/20 17:30 Potassium Chloride [Klor-Con 10] 20 meq PO BIDMEALS - Assessment Assessment:: Rhabdomyolysis UTI Hyponatremia Hypertension Fall at home Generalized Weakness - Plan Plan:: No complaints this morning other than feeling achy. Denies any significant pain. Denies any urinary symptoms. Na improved from 124 to 127. Chloride improved from 88 to 92. Creatinine kinase improved from 964 to 743. Magnesium low this morning at 1.6. Will continue with IVF. Replace magnesium with 2 g mag sulfate. Continue with IV antibiotics for UTI. Consult PT for strengthening. Case management for discharge planning. Patient may need Life Alert on discharge. Anticipate discharge home 1-2 days, pending lab improvement. 11-20-2020 Patient febrile this am with sinus tachycardia. More sore today. Has increased discomfort with movement today. Sodium minimally improved to 12. CK minimally improved at 702. Potassium slightly low at 3.4. Creatinine is stable. Will continue with IV fluids. Continue PT. Does agree that she will need Life Alert for home safety. Transferred to acute status. Possibly discharge in next 1-2 days. 11-21-2020 Patient continues to have episodes of tachycardia. Is asymptomatic during theses. Will continue with current does metoprolol. Does feel generalized achiness is improved today. Has not had any diarrhea this morning. Urine culture revealed ecoli. Will switch to Macrobid as patient having diarrhea, which she believes to be from Rocephin. Labs show much improvement today. Na improved from 128 to 134, which is back to patient's baseline. CK improved from 704 to 372. K low at 3.4. Will start oral K supplements. Will stop IVF at this time. Repeat labs in am. Will continue acute status. PT to continue to work with patient for s trengthening/balance. Anticipate discharge home tomorrow if patient continues to improve.
[2020-11-21] MEDS: Nitrofurantoin Monohydrate/Macrocrystalline 100 MG Cap PO SCH ×2 (10:13→17:25)
[2020-11-21] MEDS: Potassium Chloride 10 MEQ Tab.ER PO SCH ×2 (10:14→17:25)
[2020-11-21] MEDS: Oxybutynin 5 MG Tab PO SCH (19:57)
[2020-11-21] MEDS: Enoxaparin 30 MG/0.3 ML Syringe SUBCUT SCH (19:58)
[2020-11-21] MEDS: Pantoprazole 40 MG Tab.CR PO SCH (19:58)
[2020-11-21] MEDS: Acetaminophen 325 MG Tab PO PRN (20:04)
[2020-11-22 07:27] LABS: CHLORIDE,CL 97 mEq/L (98-106); SODIUM,NA 133 mEq/L (136-145)
[2020-11-22] MEDS: Metoprolol Succinate 25 MG Tab.ER PO SCH (07:51)
[2020-11-22] MEDS: Nitrofurantoin Monohydrate/Macrocrystalline 100 MG Cap PO SCH ×2 (07:51→17:20)
[2020-11-22] MEDS: buPROPion 150 MG Tab.ER PO SCH (07:51)
[2020-11-22] MEDS: Calcium Carbonate/Vitamin D3 1250 MG-200 Unit Tab PO SCH ×3 (07:51→17:20)
[2020-11-22] MEDS: PARoxetine 20 MG Tab PO SCH (07:52)
[2020-11-22] MEDS: amLODIPine 10 MG Tab PO SCH (07:52)
[2020-11-22] MEDS: Cholecalciferol (Vitamin D3) 25 MCG Tab PO SCH (07:52)
[2020-11-22] MEDS: Potassium Chloride 10 MEQ Tab.ER PO SCH ×2 (07:52→17:20)
[2020-11-22] MEDS: Losartan 100 MG Tab PO SCH (07:52)
[2020-11-22] MEDS: FESOTERODINE FUMARATE 8 MG PO SCH (07:54)
--- NOTE | 2020-11-22 08:48 | PCM.PN ---
- General Info Date of Service: 11/22/20 Admission Dx/Problem (Free Text): Rhabdomyolysis UTI Fall at home Hyponatremia Generalized Weakness Hypertension Subjective Update: Patient does feel she is improving, but continues to feel "shaky" when up. She is very anxious about going home and falling again. She does not yet have life alert set up. She did have episode last night where she was short of breath and oxygen sats dipped. She does report she chronically has some SOB with exertion. Has continued to have episodes of sinus tachycardia, remains asymptomatic with these. Diarrhea has improved. No additional complaints. Functional Status: Reports: Pain Controlled, Tolerating Diet, Ambulating, Urinating, New Symptoms (exertional SOB) - Review of Systems General: Reports: Weakness HEENT: Reports: No Symptoms Pulmonary: Reports: Shortness of Breath. Denies: Cough, Sputum, Hemoptysis, Wheezing Cardiovascular: Reports: Dyspnea on Exertion. Denies: Chest Pain, Orthopnea, Edema Gastrointestinal: Reports: No Symptoms. Denies: Diarrhea Genitourinary: Reports: No Symptoms Musculoskeletal: Reports: No Symptoms Skin: Reports: No Symptoms Neurological: Reports: Weakness Psychiatric: Reports: Anxiety - Patient Data Vitals - Most Recent: Last Vital Signs Temp 99.3 F 11/22/20 07:46 Pulse 92 11/22/20 07:51 Resp 18 11/22/20 07:46 BP 145/75 H 11/22/20 07:52 Pulse Ox 93 L 11/22/20 07:46 Weight - Most Recent: 162 lb 3.2 oz Lab Results Last 24 Hours: Laboratory Results - last 24 hr 11/22/20 11/22/20 11/22/20 Range/Units 06:55 06:55 06:55 WBC 6.5 (5.0-10.0) 10^3/uL RBC 3.25 L (4.00-5.50) 10^6/uL Hgb 10.0 L (12.0-16.0) g/dL Hct 28.9 L (37.0-47.0) % MCV 88.9 (82.0-94.0) fL MCH 30.8 (27.0-32.0) pg MCHC 34.6 (33.0-38.0) g/dL RDW Coeff of Angie 14.0 (11.0-15.0) % Plt Count 284 (150-400) 10^3/uL Neut % (Auto) 68.6 (35-85) % Lymph % (Auto) 10.9 (10-55) % [place] % (Auto) 18.3 H (0-16) % Eos % (Auto) 1.7 (0-5) % Baso % (Auto) 0.5 (0-3) % Neut # (Auto) 4.49 (1.80-7.00) 10^3/uL Lymph # (Auto) 0.71 L (1.00-4.80) 10^3/uL [place] # (Auto) 1.20 H (0.00-0.80) 10^3/uL Eos # (Auto) 0.11 (0.00-0.45) 10^3/uL Baso # (Auto) 0.03 10^3/uL PT 18.6 H (9.7-12.3) SEC INR 1.78 H (0.92-1.18) Sodium 133 L (136-145) mEq/L Potassium 3.7 (3.5-5.0) mEq/L Chloride 97 L (98-106) mEq/L Carbon Dioxide 27 (21-32) mmol/L BUN 4 L (7-18) mg/dL Creatinine 0.7 (0.6-1.0) mg/dL Est Cr Clr Drug Dosing 66.49 mL/min Estimated GFR (MDRD) > 60 (>=60) mL/min Glucose 112 H (75-99) mg/dL Calcium 8.2 L (8.4-10.1) mg/dL Total Bilirubin 0.6 (0.0-1.0) mg/dL AST 28 (15-37) U/L ALT 19 (12-78) U/L Alkaline Phosphatase 56 (46-116) U/L Creatine Kinase 231 H (21-215) U/L C-Reactive Protein 5.9 H (0.2-0.8) mg/dL Total Protein 6.0 L (6.4-8.2) g/dL Albumin 2.4 L (3.4-5.0) g/dL Jaspal Results Last 24 Hours: Microbiology 11/19/20 08:36 Urine Culture - Final Urine, Clean Catch Escherichia Coli Med Orders - Current: Current Medications Acetaminophen (Acetaminophen 325 Mg Tab) 650 mg PO Q4H PRN PRN Reason: Pain (Mild 1-3)/fever Last Admin: 11/21/20 20:04 Dose: 650 mg Documented by: Alprazolam (Alprazolam 0.25 Mg Tab) 0.25 mg PO Q6H PRN PRN Reason: Anxiety Amlodipine Besylate (Amlodipine 10 Mg Tab) 5 mg PO DAILY [facility] Last Admin: 11/22/20 07:52 Dose: 5 mg Documented by: Bupropion HCl (Bupropion 150 Mg Tab.Er) 150 mg PO DAILY [facility] Last Admin: 11/22/20 07:51 Dose: 150 mg Documented by: Calcium Carbonate (Calcium Carbonate/Vitamin D3 1250 Mg-200 Unit Tab) 1 tab PO TIDMEALS [facility] Last Admin: 11/22/20 07:51 Dose: 1 tab Documented by: Ceftriaxone Sodium (Ceftriaxone 1 Gm Vial) 1 gm IVPUSH Q24H [facility] Last Admin: 11/20/20 12:25 Dose: 1 gm Documented by: Cholecalciferol (Cholecalciferol (Vitamin D3) 25 Mcg Tab) 25 mcg PO DAILY [facility] Last Admin: 11/22/20 07:52 Dose: 25 mcg Documented by: Enoxaparin Sodium (Enoxaparin 30 Mg/0.3 Ml Syringe) 30 mg SUBCUT Q24H [facility] Last Admin: 11/21/20 19:58 Dose: 30 mg Documented by: Sodium Chloride (Normal Saline) 1,000 mls @ 75 mls/hr IV ASDIRECTED [facility] Last Admin: 11/21/20 05:44 Dose: 75 mls/hr Documented by: Losartan Potassium (Losartan 100 Mg Tab Ptom) 100 mg PO DAILY [facility] Last Admin: 11/20/20 08:15 Dose: 100 mg Documented by: Fesoterodine Fumarate [Toviaz] 8 Mg Ptom 0 mg PO DAILY [facility] Last Admin: 11/22/20 07:54 Dose: 8 mg Documented by: Metoprolol Succinate [Toprol Xl] 25mg Ptom 0 mg PO DAILY [facility] Last Admin: 11/20/20 08:16 Dose: 50 mg Documented by: Omeprazole [ Omeprazole] 20 Mg Cap Ptom 0 mg PO BEDTIME [facility] Last Admin: 11/19/20 19:50 Dose: 20 mg Documented by: Oxybutynin Chloride (Oxybutynin 5 Mg Tab Ptom) 5 mg PO BEDTIME [facility] Last Admin: 11/19/20 19:51 Dose: 5 mg Documented by: Paroxetine HCl (Paroxetine 20 Mg Tab Ptom) 20 mg PO DAILY [facility] Last Admin: 11/20/20 08:16 Dose: 20 mg Documented by: Psyllium Husk (Psyllium Husk Powder Sugar Free 5.85 Gm Packet) 1 pkt PO DAILY PRN PRN Reason: Constipation Warfarin Sodium (Warfarin 5 Mg Tab Ptom) 5 mg PO [email or web address] [facility] Last Admin: 11/20/20 19:41 Dose: 5 mg Documented by: Warfarin Sodium (Warfarin 5 Mg Tab Ptom) 2.5 mg PO [email or web address] [facility] Last Admin: 11/19/20 19:50 Dose: 2.5 mg Documented by: Discontinued Medications Ceftriaxone Sodium (Ceftriaxone 1 Gm Vial) 1 gm IVPUSH Q24H [facility] Last Admin: 11/19/20 11:10 Dose: Not Given Documented by: Enoxaparin Sodium (Enoxaparin 30 Mg/0.3 Ml Syringe) 30 mg SUBCUT Q24H [facility] Last Admin: 11/19/20 00:23 Dose: 30 mg Documented by: Sodium Chloride (Normal Saline) 1,000 mls @ 500 mls/hr IV .BOLUS ONE Stop: 11/18/20 22:07 Last Admin: 11/18/20 20:32 Dose: 500 mls/hr Documented by: Sodium Chloride (Normal Saline) 1,000 mls @ 100 mls/hr IV ASDIRECTED [facility] Stop: 11/19/20 09:57 Last Admin: 11/19/20 00:26 Dose: 100 mls/hr Documented by: Magnesium Sulfate (Magnesium Sulfate In Water 2 Gm/50 Ml) 2 gm in 50 mls @ 25 mls/hr IV ONETIME ONE Stop: 11/19/20 10:59 Last Admin: 11/19/20 11:18 Dose: 25 mls/hr Documented by: Metoprolol Tartrate (Metoprolol Tartrate 5 Mg/5 Ml Sdv) 5 mg IVPUSH ONETIME ONE Stop: 11/18/20 23:59 Last Admin: 11/19/20 00:22 Dose: Not Given Documented by: - Exam Quality Assessment: DVT Prophylaxis General: Alert, Oriented, No Acute Distress Neck: Supple Lungs: Normal Respiratory Effort, Crackles (BLL) Cardiovascular: Regular Rate, Regular Rhythm, Murmurs GI/Abdominal Exam: Normal Bowel Sounds, Soft, Non-Tender, No Organomegaly, No Distention, No Abnormal Bruit, No Mass, Pelvis Stable Back Exam: Normal Inspection, Full Range of Motion Extremities: Normal Inspection, Normal Range of Motion, Non-Tender, No Pedal Edema, Normal Capillary Refill Skin: Ecchymosis Neurological: No New Focal Deficit Psy/Mental Status: Alert, Anxious - Patient Data Lab Results Last 24 hrs: Laboratory Results - last 24 hr 11/22/20 11/22/20 11/22/20 Range/Units 06:55 06:55 06:55 WBC 6.5 (5.0-10.0) 10^3/uL RBC 3.25 L (4.00-5.50) 10^6/uL Hgb 10.0 L (12.0-16.0) g/dL Hct 28.9 L (37.0-47.0) % MCV 88.9 (82.0-94.0) fL MCH 30.8 (27.0-32.0) pg MCHC 34.6 (33.0-38.0) g/dL RDW Coeff of Angie 14.0 (11.0-15.0) % Plt Count 284 (150-400) 10^3/uL Neut % (Auto) 68.6 (35-85) % Lymph % (Auto) 10.9 (10-55) % [place] % (Auto) 18.3 H (0-16) % Eos % (Auto) 1.7 (0-5) % Baso % (Auto) 0.5 (0-3) % Neut # (Auto) 4.49 (1.80-7.00) 10^3/uL Lymph # (Auto) 0.71 L (1.00-4.80) 10^3/uL [place] # (Auto) 1.20 H (0.00-0.80) 10^3/uL Eos # (Auto) 0.11 (0.00-0.45) 10^3/uL Baso # (Auto) 0.03 10^3/uL PT 18.6 H (9.7-12.3) SEC INR 1.78 H (0.92-1.18) Sodium 133 L (136-145) mEq/L Potassium 3.7 (3.5-5.0) mEq/L Chloride 97 L (98-106) mEq/L Carbon Dioxide 27 (21-32) mmol/L BUN 4 L (7-18) mg/dL Creatinine 0.7 (0.6-1.0) mg/dL Est Cr Clr Drug Dosing 66.49 mL/min Estimated GFR (MDRD) > 60 (>=60) mL/min Glucose 112 H (75-99) mg/dL Calcium 8.2 L (8.4-10.1) mg/dL Total Bilirubin 0.6 (0.0-1.0) mg/dL AST 28 (15-37) U/L ALT 19 (12-78) U/L Alkaline Phosphatase 56 (46-116) U/L Creatine Kinase 231 H (21-215) U/L C-Reactive Protein 5.9 H (0.2-0.8) mg/dL Total Protein 6.0 L (6.4-8.2) g/dL Albumin 2.4 L (3.4-5.0) g/dL Result Diagrams: 11/22/20 06:55 11/22/20 06:55 Jaspal Results Last 24 hrs: Microbiology 11/19/20 08:36 Urine Culture - Final Urine, Clean Catch Escherichia Coli Sepsis Event Note - Evaluation Sepsis Screening Result: No Definite Risk - Focused Exam Vital Signs: Vital Signs Temp Pulse Pulse Resp BP BP Pulse Ox 11/22/20 07:52 145/75 H 11/22/20 07:51 92 145/75 H 11/22/20 07:46 99.3 F 90 18 145/75 H 93 L 11/22/20 05:00 96.8 F L 96 20 161/85 H 92 L 11/21/20 23:59 99.6 F 104 H 20 159/83 H 91 L - Problem List & Annotations (1) Rhabdomyolysis SNOMED Code(s): 821846002 Code(s): M62.82 - RHABDOMYOLYSIS Status: Acute Priority: High Current Visit: Yes Qualifiers: Rhabdomyolysis type: traumatic Encounter type: initial encounter Qualif ied Code(s): T79.6XXA - Traumatic ischemia of muscle, initial encounter (2) Hyponatremia SNOMED Code(s): 71200190 Code(s): E87.1 - HYPO-OSMOLALITY AND HYPONATREMIA Status: Acute Priority: High Current Visit: Yes (3) UTI (urinary tract infection) SNOMED Code(s): 52009705 Code(s): N39.0 - URINARY TRACT INFECTION, SITE NOT SPECIFIED Status: Acute Current Visit: Yes Qualifiers: Urinary tract infection type: acute cystitis Hematuria presence: without hematuria Qualified Code(s): N30.00 - Acute cystitis without hematuria (4) Hypertension SNOMED Code(s): 16538844 Code(s): I10 - ESSENTIAL (PRIMARY) HYPERTENSION Status: Acute Current Visit: Yes Qualifiers: Hypertension type: essential hypertension Qualified Code(s): I10 - Essential (primary) hypertension (5) Fluid overload SNOMED Code(s): 64973024 Code(s): E87.70 - FLUID OVERLOAD, UNSPECIFIED Status: Acute Current Visit: Yes Qualifiers: Hypervolemia type: other Qualified Code(s): E87.79 - Other fluid overload - Problem List Review Problem List Initiated/Reviewed/Updated: Yes - My Orders Last 24 Hours: My Active Orders 11/21/20 09:28 Nitrofurantoin [place]/Macrocryst [Macrobid] 100 mg PO BIDMEALS 11/21/20 10:15 Potassium Chloride [Klor-Con 10] 20 meq PO BIDMEALS 11/22/20 08:00 Metoprolol Succinate [Toprol XL] 50 mg PO DAILY 11/22/20 08:47 Chest 2V [CR] Routine PRO B-TYPE NATRIUR PEPT,BNPPRO [CHEM] Routine - Assessment Assessment:: Rhabdomyolysis UTI Hyponatremia Hypertension Fall at home Generalized Weakness Fluid Overload - Plan Plan:: No complaints this morning other than feeling achy. Denies any significant pain. Denies any urinary symptoms. Na improved from 124 to 127. Chloride improved from 88 to 92. Creatinine kinase improved from 964 to 743. Magnesium low this morning at 1.6. Will continue with IVF. Replace magnesium with 2 g mag sulfate. Continue with IV antibiotics for UTI. Consult PT for strengthening. Case management for discharge planning. Patient may need Life Alert on discharge. Anticipate discharge home 1-2 days, pending lab improvement. 11-20-2020 Patient febrile this am with sinus tachycardia. More sore today. Has increased discomfort with movement today. Sodium minimally improved to 12. CK minimally improved at 702. Potassium slightly low at 3.4. Creatinine is stable. Will continue with IV fluids. Continue PT. Does agree that she will need Life Alert for home safety. Transferred to acute status. Possibly discharge in next 1-2 days. 11-21-2020 Patient continues to have episodes of tachycardia. Is asymptomatic during theses. Will continue with current does metoprolol. Does feel generalized achiness is improved today. Has not had any diarrhea this morning. Urine culture revealed ecoli. Will switch to Macrobid as patient having diarrhea, which she believes to be from Rocephin. Labs show much improvement today. Na improved from 128 to 134, which is back to patient's baseline. CK improved from 704 to 372. K low at 3.4. Will start oral K supplements. Will stop IVF at this time. Repeat labs in am. Will continue acute status. PT to continue to work with patient for strengthening/balance. Anticipate discharge home tomorrow if patient continues to improve. 11-22-2020 Patient very anxious about going home today as she still feels weak and shaky. She is very worried about falling again. She lives alone so is concerned as she does not have her life alert yet. Will continue with PT one additional day. Diarrhea has improved. Continued Macrobid. More SOB with decreased O2 sats with ambulation. ProBNP elevated to 6093. Suspect fluid overload as she did receive 3 days of IVF. No hx of CHF. Will give one dose of IV lasix 40 mg. If SOB/crackles continue, may need to d/c home with few additional days of lasix. CXR does reveal small bilateral pleural effusions. Lab work shows much improvement. Na stable at 133. Creatine kinase down to 231. Discussed discharge home tomorrow. Patient is agreeable to this.
[2020-11-22] MEDS ORDERED: Furosemide 40 MG/4 ML VIAL IVPUSH ONE (10:00)
[2020-11-22] MEDS: Acetaminophen 325 MG Tab PO PRN (13:00)
[2020-11-22] MEDS: Enoxaparin 30 MG/0.3 ML Syringe SUBCUT SCH (20:28)
[2020-11-22] MEDS: Oxybutynin 5 MG Tab PO SCH (20:29)
[2020-11-22] MEDS: Warfarin 5 MG Tab PO SCH (20:29)
[2020-11-22] MEDS: Pantoprazole 40 MG Tab.CR PO SCH (20:29)
[2020-11-23 07:58] VITALS: BP 139/65; PULSE 82
[2020-11-23] MEDS: Metoprolol Succinate 25 MG Tab.ER PO SCH (07:58)
[2020-11-23] MEDS: Potassium Chloride 10 MEQ Tab.ER PO SCH (07:58)
[2020-11-23] MEDS: Nitrofurantoin Monohydrate/Macrocrystalline 100 MG Cap PO SCH (07:58)
[2020-11-23] MEDS: PARoxetine 20 MG Tab PO SCH (07:58)
[2020-11-23] MEDS: buPROPion 150 MG Tab.ER PO SCH (07:59)
[2020-11-23] MEDS: Cholecalciferol (Vitamin D3) 25 MCG Tab PO SCH (07:59)
[2020-11-23] MEDS: amLODIPine 10 MG Tab PO SCH (07:59)
[2020-11-23] MEDS: Losartan 100 MG Tab PO SCH (08:00)
[2020-11-23] MEDS: FESOTERODINE FUMARATE 8 MG PO SCH (08:00)
[2020-11-23] MEDS: Calcium Carbonate/Vitamin D3 1250 MG-200 Unit Tab PO SCH ×2 (08:00→11:43)
--- NOTE | 2020-11-23 10:40 | PCM.DCSUM1 ---
Discharge Summary - Hospital Course Free Text/Narrative:: Romana is a 75 year old female who presented to ER with weakness and feeling "shaky". She had went to bed at 1930 and awoke on the floor at 2030. Is unsure how she had fallen to the floor. Unsure if she had hit her head. Did crawl several feet but felt too weak to go further and reach her phone. Slept there through the night and through the next day awaiting for someone to come. Daughter did find her in the afternoon. Was incontinent of stool and urine. Had not eaten since day prior. Was unable to get up from floor, EMS was called. Had right hip and side pain, rating a 4/10. Trauma code was called. Head CT, xrays normal. Labs revealed a low sodium at 124. CK high at 964. Urine positive for bacteria. Admitted observation and started on IV fluids, IV Rocephin. Diagnosis: Stroke: No Modified Alexis Scale: No Symptoms at All Modified Todd Scale Score: 0 - Discharge Data Discharge Date: 11/23/20 Discharge Disposition: Home, Home Health Agency 06 Condition: Good - Referral to Home Health Date of Face to Face Encounter: 11/23/20 Reason for Homebound Status: Patient remains weak, unsteady at times. Unable to drive due to safety Primary Care Physician: [place] Jose Skilled Need: Nursing to monitor blood pressure, edema, lung sounds. Physical therapy for strengthening. Occupational therapy for home safety/ADLs. - Discharge Diagnosis/Problem(s) (1) Hyponatremia SNOMED Code(s): 60403604 ICD Code: E87.1 - HYPO-OSMOLALITY AND HYPONATREMIA Status: Acute Priority: High (2) Rhabdomyolysis SNOMED Code(s): 108913334 ICD Code: M62.82 - RHABDOMYOLYSIS Status: Acute Priority: High Qualifiers: Rhabdomyolysis type: traumatic Encounter type: initial encounter Qualified Code(s): T79.6XXA - Traumatic ischemia of muscle, initial encounter - Patient Summary/Data Complications: none Consults: Consultations 11/18/20 23:58 PT Evaluation and Treatment [CONS] Routine Hospital Course: Patient is doing much better today. Has recovered from her fall slowly. Had muscle soreness in legs, right chest wall through much of the week. Is now more steady, ambulating per self with her walker. CK has slowly come down in to the 200s now. Sodium has improved with IV normal saline. Did have over 3 liters of fluid to correct the rhabdomylosis causing fluid overload to heart. No known history of CHF but did develop shortness of breath, had pleural effusions in lungs and noted ProBNP over 6000. Was given IV Lasix and had good output. Developed diarrhea from Rocephin, was switched to Macrobid and the diarrhea did improve. Is afebrile. Vital signs are good. Will discharge home with Home Health. Continue Macrobid. Continue Lasix for 4 more days. Will repeat labs on follow up visit. - Patient Instructions Diet: Usual Diet as Tolerated Activity: As Tolerated - Discharge Plan *PRESCRIPTION DRUG MONITORING PROGRAM REVIEWED*: Not Applicable *COPY OF PRESCRIPTION DRUG MONITORING REPORT IN PATIENT KRYSTYNA: Not Applicable Prescriptions/Med Rec: Furosemide [Lasix] 40 mg PO DAILY #5 tablet Nitrofurantoin [place]/Macrocryst [Nitrofurantoin Letcher-MCR] 100 mg PO BIDMEALS #14 cap Home Medications: Home Meds Ascorbic Acid [Vitamin C] 1 tab PO DAILY PRN 08/02/15 [History] Calcium Citrate/Vitamin D3 [Calcium Citrate + Caplet] 1,000 mg PO TID 08/02/15 [History] Metoprolol Succinate [Toprol XL] 50 mg PO DAILY 08/02/15 [History] PARoxetine [Paxil] 20 mg PO DAILY 08/02/15 [History] Warfarin [Coumadin] 5 mg PO MOWEFR 08/02/15 [History] Losartan Potassium 100 mg PO DAILY 03/04/16 [History] Zoledronic Acid in Water [Reclast] 5 mg IV Q365D 03/04/16 [History] ALPRAZolam [Xanax] 0.25 mg PO Q6H PRN 07/01/17 [History] Cholecalciferol (Vitamin D3) [Vitamin D3] 1,000 units PO DAILY 07/01/17 [History] Pantoprazole Sodium 40 mg PO DAILY 07/01/17 [History] buPROPion HCL [Wellbutrin Xl] 150 mg PO DAILY 07/01/17 [History] calcium polycarbophiL [Fibercon] 1 tab PO DAILY PRN 03/30/19 [History] Fesoterodine Fumarate [Toviaz] 8 mg PO DAILY 05/16/20 [History] Omeprazole 20 mg PO DAILY 05/16/20 [History] Oxybutynin Chloride 5 mg PO DAILY 05/16/20 [History] amLODIPine Besylate [Amlodipine Besylate] 5 mg PO DAILY 05/16/20 [History] Warfarin [Coumadin] 2.5 mg PO SUTUTHSA 11/19/20 [History] Furosemide [Lasix] 40 mg PO DAILY #5 tablet 11/23/20 [Rx] Nitrofurantoin [place]cher/Macrocryst [Nitrofurantoin [place]cher-MCR] 100 mg PO BIDMEALS #14 cap 11/23/20 [Rx] Patient Handouts: Rhabdomyolysis Forms: ED Department Discharge Referrals: Annie Lawrence PA [Primary Care Provider] - - Discharge Summary/Plan Comment DC Time >30 min.: No - General Info Date of Service: 11/23/20 Admission Dx/Problem (Free Text: Rhabdomyolysis UTI Fall at home Hyponatremia Generalized Weakness Hypertension Functional Status: Reports: Pain Controlled, Tolerating Diet, Ambulating - Review of Systems General: Reports: Weakness, Fatigue HEENT: Reports: No Symptoms Pulmonary: Denies: Shortness of Breath, Cough Cardiovascular: Denies: Chest Pain, Edema, Lightheadedness Gastrointestinal: Denies: Abdominal Pain, Nausea, Vomiting Genitourinary: Denies: Dysuria Musculoskeletal: Reports: Back Pain Skin: Reports: No Symptoms Neurological: Reports: Weakness - Patient Data Vitals - Most Recent: Last Vital Signs Temp 97.0 F 11/23/20 07:57 Pulse 82 11/23/20 07:58 Resp 16 11/23/20 07:57 BP 139/65 11/23/20 08:00 Pulse Ox 97 11/23/20 07:57 Weight - Most Recent: 162 lb 3.2 oz Med Orders - Current: Current Medications Acetaminophen (Acetaminophen 325 Mg Tab) 650 mg PO Q4H PRN PRN Reason: Pain (Mild 1-3)/fever Last Admin: 11/22/20 13:00 Dose: 650 mg Documented by: Alprazolam (Alprazolam 0.25 Mg Tab) 0.25 mg PO Q6H PRN PRN Reason: Anxiety Amlodipine Besylate (Amlodipine 10 Mg Tab) 5 mg PO DAILY [facility] Last Admin: 11/23/20 07:59 Dose: 5 mg Documented by: Bupropion HCl (Bupropion 150 Mg Tab.Er) 150 mg PO DAILY [facility] Last Admin: 11/23/20 07:59 Dose: 150 mg Documented by: Calcium Carbonate (Calcium Carbonate/Vitamin D3 1250 Mg-200 Unit Tab) 1 tab PO TIDMEALS [facility] Last Admin: 11/23/20 08:00 Dose: 1 tab Documented by: Cholecalciferol (Cholecalciferol (Vitamin D3) 25 Mcg Tab) 25 mcg PO DAILY [facility] Last Admin: 11/23/20 07:59 Dose: 25 mcg Documented by: Enoxaparin Sodium (Enoxaparin 30 Mg/0.3 Ml Syringe) 30 mg SUBCUT Q24H [facility] Last Admin: 11/22/20 20:28 Dose: 30 mg Documented by: Losartan Potassium (Losartan 100 Mg Tab) 100 mg PO DAILY [facility] Last Admin: 11/23/20 08:00 Dose: 100 mg Documented by: Metoprolol Succinate (Metoprolol Succinate 25 Mg Tab.Er) 50 mg PO DAILY [facility] Last Admin: 11/23/20 07:58 Dose: 50 mg Documented by: Nitrofurantoin Macrocrystals (Nitrofurantoin Monohydrate/Macrocrystalline 100 Mg Cap) 100 mg PO BIDMEALS [facility] Stop: 11/24/20 09:29 Last Admin: 11/23/20 07:58 Dose: 100 mg Documented by: Fesoterodine Fumarate [Toviaz] 8 Mg Ptom 0 mg PO DAILY [facility] Last Admin: 11/23/20 08:00 Dose: 8 mg Documented by: Oxybutynin Chloride (Oxybutynin 5 Mg Tab) 5 mg PO BEDTIME [facility] Last Admin: 11/22/20 20:29 Dose: 5 mg Documented by: Pantoprazole Sodium (Pantoprazole 40 Mg Tab.Cr) 40 mg PO BEDTIME [facility] Last Admin: 11/22/20 20:29 Dose: 40 mg Documented by: Paroxetine HCl (Paroxetine 20 Mg Tab) 20 mg PO DAILY [facility] Last Admin: 11/23/20 07:58 Dose: 20 mg Documented by: Potassium Chloride (Potassium Chloride 10 Meq Tab.Er) 20 meq PO BIDMEALS [facility] Last Admin: 11/23/20 07:58 Dose: 20 meq Documented by: Psyllium Husk (Psyllium Husk Powder Sugar Free 5.85 Gm Packet) 1 pkt PO DAILY PRN PRN Reason: Constipation Warfarin Sodium (Warfarin 5 Mg Tab) 5 mg PO [email or web address] [facility] Last Admin: 11/22/20 20:29 Dose: 5 mg Documented by: Warfarin Sodium (Warfarin 5 Mg Tab) 2.5 mg PO [email or web address] [facility] Last Admin: 11/21/20 19:56 Dose: 2.5 mg Documented by: Discontinued Medications Ceftriaxone Sodium (Ceftriaxone 1 Gm Vial) 1 gm IVPUSH Q24H [facility] Last Admin: 11/19/20 11:10 Dose: Not Given Documented by: Ceftriaxone Sodium (Ceftriaxone 1 Gm Vial) 1 gm IVPUSH Q24H [facility] Last Admin: 11/20/20 12:25 Dose: 1 gm Documented by: Enoxaparin Sodium (Enoxaparin 30 Mg/0.3 Ml Syringe) 30 mg SUBCUT Q24H [facility] Last Admin: 11/19/20 00:23 Dose: 30 mg Documented by: Furosemide (Furosemide 40 Mg/4 Ml Vial) 40 mg IVPUSH ONETIME ONE Stop: 11/22/20 10:01 Last Admin: 11/22/20 10:21 Dose: 40 mg Documented by: Sodium Chloride (Normal Saline) 1,000 mls @ 500 mls/hr IV .BOLUS ONE Stop: 11/18/20 22:07 Last Admin: 11/18/20 20:32 Dose: 500 mls/hr Documented by: Sodium Chloride (Normal Saline) 1,000 mls @ 100 mls/hr IV ASDIRECTED [facility] Stop: 11/19/20 09:57 Last Admin: 11/19/20 00:26 Dose: 100 mls/hr Documented by: Magnesium Sulfate (Magnesium Sulfate In Water 2 Gm/50 Ml) 2 gm in 50 mls @ 25 mls/hr IV ONETIME ONE Stop: 11/19/20 10:59 Last Admin: 11/19/20 11:18 Dose: 25 mls/hr Documented by: Sodium Chloride (Normal Saline) 1,000 mls @ 75 mls/hr IV ASDIRECTED [facility] Last Admin: 11/21/20 05:44 Dose: 75 mls/hr Documented by: Losartan Potassium (Losartan 100 Mg Tab Ptom) 100 mg PO DAILY [facility] Last Admin: 11/20/20 08:15 Dose: 100 mg Documented by: Metoprolol Succinate (Metoprolol Succinate 25 Mg Tab.Er) 50 mg PO DAILY [facility] Last Admin: 11/21/20 07:54 Dose: 50 mg Documented by: Metoprolol Tartrate (Metoprolol Tartrate 5 Mg/5 Ml Sdv) 5 mg IVPUSH ONETIME ONE Stop: 11/18/20 23:59 Last Admin: 11/19/20 00:22 Dose: Not Given Documented by: Metoprolol Succinate [Toprol Xl] 25mg Ptom 0 mg PO DAILY [facility] Last Admin: 11/20/20 08:16 Dose: 50 mg Documented by: Omeprazole [ Omeprazole] 20 Mg Cap Ptom 0 mg PO BEDTIME [facility] Last Admin: 11/19/20 19:50 Dose: 20 mg Documented by: Oxybutynin Chloride (Oxybutynin 5 Mg Tab Ptom) 5 mg PO BEDTIME [facility] Last Admin: 11/19/20 19:51 Dose: 5 mg Documented by: Paroxetine HCl (Paroxetine 20 Mg Tab Ptom) 20 mg PO DAILY [facility] Last Admin: 11/20/20 08:16 Dose: 20 mg Documented by: Warfarin Sodium (Warfarin 5 Mg Tab) 2.5 mg PO [email or web address] [facility] Last Admin: 11/19/20 19:50 Dose: 2.5 mg Documented by: - Exam General: Reports: Alert, Oriented HEENT: Reports: Mucous Membr. Moist/[place] Neck: Reports: Supple Lungs: Reports: Clear to Auscultation, Normal Respiratory Effort Cardiovascular: Reports: Regular Rate, Regular Rhythm, Murmurs GI/Abdominal Exam: Normal Bowel Sounds, Soft, Non-Tender Extremities: Normal Inspection, No Pedal Edema Skin: Reports: Warm, Dry Neurological: Reports: No New Focal Deficit
== END 2020-11-23 12:36 | disposition home health service (06) | DRG 565 ==
LOC: CC.ED 19:17 → CC.MS 21:58 → UNDOADMOB 23:33 → OBSVTOIN 11-20 08:34
PROVIDERS: ADMIT Nurse Practitioner Family; ATTEND Family Medicine
DX: E87.1 Hypo-osmolality and hyponatremia (principal); T79.6XXA Traumatic ischemia of muscle, initial encounter; N30.00 Acute cystitis without hematuria; I10 Essential (primary) hypertension; H54.7 Unspecified visual loss; H91.90 Unspecified hearing loss, unspecified ear; J30.9 Allergic rhinitis, unspecified; Z86.718 Personal history of other venous thrombosis and embolism; M54.9 Dorsalgia, unspecified; Z86.711 Personal history of pulmonary embolism; K21.9 Gastro-esophageal reflux disease without esophagitis; K57.90 Diverticulosis of intestine, part unspecified, without perforation or abscess without bleeding; Z96.649 Presence of unspecified artificial hip joint; M19.90 Unspecified osteoarthritis, unspecified site; G89.29 Other chronic pain; M81.0 Age-related osteoporosis without current pathological fracture; Z88.2 Allergy status to sulfonamides; F41.9 Anxiety disorder, unspecified; Z88.8 Allergy status to other drugs, medicaments and biological substances; F32.9 Major depressive disorder, single episode, unspecified; Z98.49 Cataract extraction status, unspecified eye; Z90.710 Acquired absence of both cervix and uterus; Z87.891 Personal history of nicotine dependence; Y92.009 Unspecified place in unspecified non-institutional (private) residence as the place of occurrence of the external cause; Z88.1 Allergy status to other antibiotic agents; Z79.01 Long term (current) use of anticoagulants; Z79.899 Other long term (current) drug therapy; W19.XXXA Unspecified fall, initial encounter; R53.1 Weakness
CPT/HCPCS: 36415; 70450; 71046; 80048; 80053; 81001; 82550; 83735; 83880; 85025; 85610; 86140; 87086; 87088; 87186; 93005; 93010; 96365; 96372; 96375; 97110-GP; 97161-GP; 97530-GP; 99220; 99225; 99285-25; A9270-GY; G0378; J0696; J1650; J1940; J3475; J7030

== ENCOUNTER 2021-04-20 20:54 | Emergency (ER) | payer MEDICARE, OTHER ==
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
[2021-04-20] MEDS: Ondansetron 4 MG Tab.DIS PO ONE (21:30)
[2021-04-20] MEDS: Morphine 2 MG/ML SYRINGE IM ONE (21:30)
[2021-04-20 23:43] VITALS: BP 128/79; PULSE 94
[2021-04-21] MEDS: Morphine 2 MG/ML SYRINGE IVPUSH ONE (00:28)
== END 2021-04-21 00:35 ==
LOC: CC.ED 20:54
DX: S72.402A Unspecified fracture of lower end of left femur, initial encounter for closed fracture (principal); I10 Essential (primary) hypertension; K21.9 Gastro-esophageal reflux disease without esophagitis; Z88.1 Allergy status to other antibiotic agents; Z88.8 Allergy status to other drugs, medicaments and biological substances; Z88.6 Allergy status to analgesic agent; Z88.2 Allergy status to sulfonamides; Z79.01 Long term (current) use of anticoagulants; Z79.899 Other long term (current) drug therapy; W07.XXXA Fall from chair, initial encounter
CPT/HCPCS: 73562; 96372; 96374; 99283; 99284; A9270; J2270

== ENCOUNTER → 2022-10-08 | Day surgery (SDC) | payer MEDICARE, OTHER ==
[~2022-10-08] MED LIST changes: +Ketamine 200 MG/20 ML MDV ONE; +Lidocaine 2% 5 ML SDV ONE; -Propofol 200 MG/20 ML SDV IV ONE; +Propofol 200 MG/20 ML SDV ONE; +fentaNYL 50 MCG/ML SDV ONE
[2022-10-08 09:14] VITALS: BP 124/51; PULSE 67
== END ==
LOC: CC.SDS 06:17
PROVIDERS: ATTEND Surgery
DX: Z12.11 Encounter for screening for malignant neoplasm of colon (principal); K57.30 Diverticulosis of large intestine without perforation or abscess without bleeding; R13.10 Dysphagia, unspecified; K64.8 Other hemorrhoids; F41.9 Anxiety disorder, unspecified; M19.90 Unspecified osteoarthritis, unspecified site; F32.A Depression, unspecified; E87.5 Hyperkalemia; E78.5 Hyperlipidemia, unspecified; M81.0 Age-related osteoporosis without current pathological fracture; E87.1 Hypo-osmolality and hyponatremia; Z86.010 Personal history of colon polyps; Z98.890 Other specified postprocedural states; Z88.2 Allergy status to sulfonamides; Z88.6 Allergy status to analgesic agent; Z88.8 Allergy status to other drugs, medicaments and biological substances; Z88.1 Allergy status to other antibiotic agents; Z79.899 Other long term (current) drug therapy; Z79.01 Long term (current) use of anticoagulants; Z87.891 Personal history of nicotine dependence
CPT/HCPCS: 36415; 85610; J2704; J3010; J3490; J7120

== ENCOUNTER 2025-02-01 17:45 | Observation (INO) | payer MEDICARE, OTHER ==
[2025-02-01] MEDS: Aspirin 81 MG Tab.Chew PO ONE (18:09)
[2025-02-01 18:20] LABS: BASOPHILS ABSOLUTE AUTO 0.03 10^3/uL (0.00-0.50); BASOPHILS PERCENT AUTO 0.4 % (0-1); EOSINOPHILS ABSOLUTE AUTO 0.02 10^3/uL (0.00-1.50); EOSINOPHILS PERCENT AUTO 0.2 % (0-6); HEMATOCRIT 41.2 % (37.0-47.0); HEMOGLOBIN 14.3 g/dL (12.0-16.0); IMMATURE GRAN ABSOLUTE AUTO 0.03 10^3/uL (0.00-0.49); IMMATURE GRAN PERCENT AUTO 0.4 % (0.0-4.9); LYMPHOCYTES ABSOLUTE AUTO 1.06 10^3/uL (0.60-5.00); LYMPHOCYTES PERCENT AUTO 13.1 % (24-44); MEAN CORPUSCULAR HEMOGLOBIN 32.7 pg (27.0-32.0); MEAN CORPUSCULAR HGB CONC 34.7 g/dL (32.0-36.0); MEAN CORPUSCULAR VOLUME 94.3 fL (83.0-97.0); MONOCYTES ABSOLUTE AUTO 0.88 10^3/uL (0.00-1.50); MONOCYTES PERCENT AUTO 10.9 % (0-10); NEUTROPHILS ABSOLUTE AUTO 6.07 x10^3/uL (1.80-8.00); PLATELET COUNT,PLT 304 10^3/uL (150-400); RED BLOOD CELL COUNT 4.37 x10^6/uL (4.00-5.50); WHITE BLOOD CELL COUNT,WBC 8.1 10^3/uL (4.0-11.0)
[2025-02-01] MEDS: Ondansetron 4 MG/2 ML SDV IVPUSH STA (18:24)
[2025-02-01 18:41] LABS: ALANINE AMINOTRANSFERASE,ALT 28 U/L (12-78); ALBUMIN 3.7 g/dL (3.4-5.0); ALKALINE PHOSPHATASE 62 U/L (46-116); ASPARTATE AMNIOTRANSFERASE,AST 25 U/L (15-37); BILIRUBIN TOTAL 1.1 mg/dL (0.0-1.0); BLOOD UREA NITROGEN,BUN 8 mg/dL (7-18); CALCIUM 9.4 mg/dL (8.4-10.1); CARBON DIOXIDE,CO2 26 mmol/L (21-32); CHLORIDE,CL 89 mEq/L (98-106); CREATININE 0.7 mg/dL (0.6-1.0); ESTIMATED GFR 87 mL/min (>=60); GLUCOSE RANDOM 182 mg/dL (75-99); MAGNESIUM 1.7 mg/dL (1.8-2.4); POTASSIUM,K 3.5 mEq/L (3.5-5.0); PRO B-TYPE NATRIUR PEPT,BNPPRO 923 pg/mL (0-1000); PROTEIN TOTAL,TP 7.5 g/dL (6.4-8.2); SODIUM,NA 126 mEq/L (136-145)
[2025-02-01 18:46] LABS: INR 2.13 (0.92-1.18); PROTHROMBIN TIME 20.9 SEC (9.3-11.3)
[2025-02-01] MEDS: Alum Hydrox/Mag Hydrox/Simeth 30 ML, Lidocaine 2% 15 ML PO ONE (19:44)
[2025-02-01] MEDS ORDERED: Docusate Sodium 100 MG Cap PO PRN (20:42)
[2025-02-01] MEDS ORDERED: Polyethylene Glycol 3350 Powder 17 GM Packet PO PRN (20:42)
[2025-02-01] MEDS ORDERED: Ondansetron 4 MG Tab.DIS PO PRN (20:42)
[2025-02-01] MEDS ORDERED: Ondansetron 4 MG/2 ML SDV IV PRN (20:42)
[2025-02-01] MEDS ORDERED: Morphine 2 MG/ML SYRINGE IVPUSH PRN (20:42)
[2025-02-01] MEDS: Pantoprazole 40 MG Vial IVPUSH SCH (20:56)
[2025-02-01] MEDS ORDERED: Ascorbic Acid 500 MG Tab PO PRN (21:39)
[2025-02-01] MEDS ORDERED: Acetaminophen 500 MG Tab PO PRN (21:39)
[2025-02-01] MEDS: Warfarin 5 MG Tab PO ONE (22:07)
[2025-02-02 07:32] LABS: BASOPHILS ABSOLUTE AUTO 0.02 10^3/uL (0.00-0.50); BASOPHILS PERCENT AUTO 0.2 % (0-1); HEMATOCRIT 43.5 % (37.0-47.0); HEMOGLOBIN 15.2 g/dL (12.0-16.0); IMMATURE GRAN ABSOLUTE AUTO 0.02 10^3/uL (0.00-0.49); IMMATURE GRAN PERCENT AUTO 0.2 % (0.0-4.9); LYMPHOCYTES ABSOLUTE AUTO 0.71 10^3/uL (0.60-5.00); MEAN CORPUSCULAR HEMOGLOBIN 32.5 pg (27.0-32.0); MEAN CORPUSCULAR HGB CONC 34.9 g/dL (32.0-36.0); MEAN CORPUSCULAR VOLUME 93.1 fL (83.0-97.0); MONOCYTES ABSOLUTE AUTO 0.64 10^3/uL (0.00-1.50); MONOCYTES PERCENT AUTO 7.2 % (0-10); NEUTROPHILS ABSOLUTE AUTO 7.45 x10^3/uL (1.80-8.00); NEUTROPHILS PERCENT AUTO 84.4 % (41-71); PLATELET COUNT,PLT 307 10^3/uL (150-400); RED BLOOD CELL COUNT 4.67 x10^6/uL (4.00-5.50); WHITE BLOOD CELL COUNT,WBC 8.8 10^3/uL (4.0-11.0)
[2025-02-02] MEDS: Calcium Carbonate/Vitamin D3 1250 MG-5 MCG Tab PO SCH (07:38)
[2025-02-02] MEDS: Oxybutynin 5 MG Tab PO SCH (07:38)
[2025-02-02] MEDS: PARoxetine 20 MG Tab PO SCH (07:39)
[2025-02-02] MEDS: Cholecalciferol (Vitamin D3) 25 MCG Tab PO SCH (07:39)
[2025-02-02] MEDS: Magnesium Oxide 400 MG Tab PO SCH (07:39)
[2025-02-02] MEDS: Metoprolol Succinate 25 MG Tab.ER PO SCH (07:39)
[2025-02-02] MEDS: amLODIPine 2.5 MG Tab PO SCH (07:39)
[2025-02-02] MEDS: Trospium 20 MG Tab PO SCH (07:39)
[2025-02-02] MEDS: Losartan 100 MG Tab PO SCH (07:40)
[2025-02-02 07:42] LABS: INR 1.72 (0.92-1.18); PROTHROMBIN TIME 17.2 SEC (9.3-11.3)
[2025-02-02 08:11] LABS: CALCIUM 8.9 mg/dL (8.4-10.1); CREATININE 0.9 mg/dL (0.6-1.0); EST CRCL DRUG DOSING (CG) 46.67 mL/min; MAGNESIUM 1.8 mg/dL (1.8-2.4); POTASSIUM,K 3.4 mEq/L (3.5-5.0)
[2025-02-02] MEDS: Iopamidol 755 Mg/ML 100 ML Bottle IVPUSH ONE (10:35)
[2025-02-02] MEDS: amLODIPine 2.5 MG Tab PO ONE (10:51)
[2025-02-02] MEDS: Warfarin 2.5 MG Tab PO SCH (12:25)
[2025-02-02] MEDS: Warfarin 5 MG Tab PO SCH (12:25)
[2025-02-02] MEDS: cefTRIAXone 1 GM Vial IVPUSH ONE (14:05)
[2025-02-02] MEDS: Albuterol/Ipratropium 3.0-0.5 MG/3 ML Neb Soln NEB SCH (16:07)
[2025-02-02] MEDS: Acetaminophen 325 MG Tab PO PRN (16:17)
[2025-02-02] MEDS: Doxycycline Monohydrate 100 MG Cap PO SCH (19:15)
[2025-02-03] MEDS: amLODIPine 10 MG Tab PO SCH (07:28)
[2025-02-03 07:29] VITALS: PULSE 81
[2025-02-03 07:57] LABS: INR 2.19 (0.92-1.18); PROTHROMBIN TIME 21.5 SEC (9.3-11.3)
[2025-02-03 09:05] LABS: BASOPHILS ABSOLUTE AUTO 0.03 10^3/uL (0.00-0.50); BASOPHILS PERCENT AUTO 0.3 % (0-1); EOSINOPHILS ABSOLUTE AUTO 0.02 10^3/uL (0.00-1.50); EOSINOPHILS PERCENT AUTO 0.2 % (0-6); HEMATOCRIT 41.5 % (37.0-47.0); HEMOGLOBIN 14.2 g/dL (12.0-16.0); IMMATURE GRAN ABSOLUTE AUTO 0.03 10^3/uL (0.00-0.49); IMMATURE GRAN PERCENT AUTO 0.3 % (0.0-4.9); LYMPHOCYTES ABSOLUTE AUTO 1.64 10^3/uL (0.60-5.00); LYMPHOCYTES PERCENT AUTO 16.4 % (24-44); MEAN CORPUSCULAR HEMOGLOBIN 32.6 pg (27.0-32.0); MEAN CORPUSCULAR HGB CONC 34.2 g/dL (32.0-36.0); MEAN CORPUSCULAR VOLUME 95.4 fL (83.0-97.0); MONOCYTES ABSOLUTE AUTO 1.47 10^3/uL (0.00-1.50); MONOCYTES PERCENT AUTO 14.7 % (0-10); NEUTROPHILS ABSOLUTE AUTO 6.79 x10^3/uL (1.80-8.00); NEUTROPHILS PERCENT AUTO 68.1 % (41-71); PLATELET COUNT,PLT 345 10^3/uL (150-400); RED BLOOD CELL COUNT 4.35 x10^6/uL (4.00-5.50)
[2025-02-03 09:16] LABS: ALBUMIN 3.5 g/dL (3.4-5.0); BILIRUBIN TOTAL 0.7 mg/dL (0.0-1.0); C-REACTIVE PROTEIN 0.69 mg/dL (<=0.50); CALCIUM 9.8 mg/dL (8.4-10.1); POTASSIUM,K 3.9 mEq/L (3.5-5.0); PROTEIN TOTAL,TP 7.3 g/dL (6.4-8.2)
[2025-02-03] MEDS: cefTRIAXone 1 GM Vial IVPUSH SCH (11:31)
[2025-02-03] MEDS: Warfarin 5 MG Tab PO SCH (11:39)
[2025-02-03 14:47] VITALS: BP 96/53
== END 2025-02-03 14:00 | disposition home or self-care (01) ==
LOC: CC.ED 17:45 → CC.MS 19:10 → UNDOADMOB 20:03 → CC.MS 20:03
PROVIDERS: ADMIT Nurse Practitioner; ATTEND Nurse Practitioner
DX: R07.9 Chest pain, unspecified (principal); I10 Essential (primary) hypertension; Z88.8 Allergy status to other drugs, medicaments and biological substances; Z79.01 Long term (current) use of anticoagulants; Z79.899 Other long term (current) drug therapy
CPT/HCPCS: 36415; 71045; 71275; 74175; 80048; 80053; 83735; 83880; 84484; 85025; 85610; 86140; 93005; 94640; 96374; 96375; 96376; 99285; A9270; G0378; J0696; J2405; J2470; Q9967